=== PATIENT | female | born 1950 | race African-American/Black ===

== ENCOUNTER 2016-06-16 16:04 | Inpatient (IN) | payer MEDICARE, BC, MEDICAID ==
--- NOTE | 2016-06-16 16:28 | RAD ---
INDICATION: Code osullivan COMPARISON: CT brain January 21, 2016 TECHNIQUE: Noncontrast axial source images were acquired from the skull base to the vertex. FINDINGS: Ventricles/sulci: There is cortical atrophy with compensatory dilatation of the CSF spaces. Brain parenchyma: There is no acute focal parenchymal finding, evidence of intracranial mass, or intracranial mass effect. There are chronic periventricular and subcortical white matter changes consistent with chronic microvascular edema change. There is mild volume loss in right cerebellar hemisphere appearing unchanged and likely reflecting prior vascular insult. Intracranial hemorrhage:None. Extra-axial spaces: There are no abnormal extra axial fluid collections or evidence of extra-axial mass. Calvarium: There is no calvarial fracture or other calvarial abnormality. Scalp: There is no evidence of scalp or extracalvarial soft tissue abnormality. Paranasal sinuses/mastoid: The paranasal sinuses and mastoid air cells are clear. Other: None. IMPRESSION: CORTICAL ATROPHY WITH CHRONIC ISCHEMIC CHANGES. NO ACUTE FINDINGS. Findings called to ED at 1625 hours
[2016-06-16 16:58] LABS: Hematocrit 42 % (35-47); Mean Corpuscular HGB Conc 34 g/dl (31-36); Mean Corpuscular Hemoglobin 31 pg (27-31); Mean Corpuscular Volume 92 fL (80-97); Mean Platelet Volume 7 um3 (7.4-10.4); Red Cell Distribution Width 14 % (10.5-15); White Blood Count 6.1 10^3/ul (3.5-10.8)
[2016-06-16 17:15] LABS: Calcium 9.8 mg/dL (8.6-10.3); EGFR African American 170.5 (>60); EGFR Non-African American 132.6 (>60); Globulin 3.8 g/dL (2-4); HDL Cholesterol 71.2 mg/dL; Potassium 3.9 mmol/L (3.5-5.0); Total Bilirubin 0.4 mg/dL (0.2-1.0); Total Protein 7.8 g/dL (6.4-8.9)
[2016-06-16 17:21] LABS: Troponin I 0.07 ng/mL (<0.04)
--- NOTE | 2016-06-16 17:26 | RAD ---
INDICATION: CVA. COMPARISON: Comparison is made with a prior chest x-ray study from May 02, 2015. TECHNIQUE: A portable view of the chest was obtained. FINDINGS: Cardiac and mediastinal contours appear to be within normal limits. The lungs are underinflated and clear. No pleural effusion is seen. IMPRESSION: NO EVIDENCE FOR ACUTE DISEASE.
[2016-06-16 17:31] LABS: Phenytoin 13.4 mcg/mL (10-20)
[2016-06-16] MEDS ORDERED: Aspirin SUPP* 300 MG PR ONE (19:07)
[2016-06-16] MEDS ORDERED: hydrALAZINE IV* 20 MG/ML VIAL IV SLOW PU PRN (19:30)
[2016-06-16] MEDS: OXcarbazepine TAB(*) 300 MG PO SCH (19:42)
--- NOTE | 2016-06-16 19:49 | ED ---
Aníbal Harp Billy, scribed for Aryan Sewell MD on 06/16/16 at 1631 . Neurological HPI - HPI Summary HPI Summary: Patient is a 66 year-old female BIBA to [facility] from [facility] after she was found unresponsive at 1500. Patient is unable to provide history, level 5 caveat. Patient had a seizure at 1130 this morning. PMHx is significant for MS , seizure disorder, and previous CVA. Patient has chronic RUE and RLE weakness. - History of Current Complaint Chief Complaint: EDNeurologicalDeficit Stated Complaint: POSSIBLE CODE LOPEZ Time Seen by Provider: 06/16/16 16:06 Hx Obtained From: EMS, Medical Records Hx From Patient Unobtainable Due To: Other - level 5 caveat Onset/Duration: Sudden Onset, Started hours ago Timing: Sudden Onset Onset Severity: Moderate Current Severity: Moderate Number of Seizures: 1 Character: Responsiveness Aggravating: Unknown Alleviating: Unknown - Additional Pertinent History Primary Care Physician: LINDSEY - Allergy/Home Medications Allergies/Adverse Reactions: Allergies Allergy/AdvReac Type Severity Reaction Status Date / Time Chlorpromazine Allergy Unknown Unknown Verified 11/30/12 03:35 Reaction Details Glatiramer [From Copaxone] Allergy Unknown Unknown Verified 11/30/12 03:35 Reaction Details Mannitol [From Copaxone] Allergy Unknown Unknown Verified 11/30/12 03:35 Reaction Details Lactose Intolerance (GI) Allergy Diarrhea Verified 05/04/15 12:52 glucosteroids Allergy Unknown Unknown Uncoded 11/30/12 03:35 Reaction Details Home Medications: Home Medications Atorvastatin* [Lipitor*] 40 mg PO BEDTIME 06/16/16 [History Confirmed 06/16/16] Cholecalciferol [Vitamin D3 Super Strength] 2,000 unit PO QAM 06/16/16 [History Confirmed 06/16/16] Demeclocycline TAB* [Declomycin TAB*] 150 mg PO BID 06/16/16 [History Confirmed 06/16/16] Diazepam (ANTICONVULSANT)(*) [Diastat Acudial(*)] 10 mg NM ONCE PRN 06/16/16 [ History Confirmed 06/16/16] Emollient Ointment* [Hydrophor*] 1 applic TOPICAL BID 06/16/16 [History Confirmed 06/16/16] Labetalol TAB* [Trandate TAB*] 200 mg PO BID 06/16/16 [History Confirmed ] Levothyroxine TAB* [Synthroid TAB*] 50 mcg PO QPM 06/16/16 [History Confirmed ] Nitroglycerin TAB 0.4 MG* 0.4 mg SL Q5M PRN 06/16/16 [History Confirmed 06/16/16 ] OXcarbazepine TAB(*) [Trileptal TAB(*)] 600 mg PO BID 06/16/16 [History Confirmed 06/16/16] Oxcarbazepine [Trileptal] 150 mg PO BEDTIME 06/16/16 [History Confirmed 06/16/16 ] Phenytoin CAP(*) [Dilantin CAP(*)] 300 mg PO BEDTIME 06/16/16 [History Confirmed 06/16/16] PMH/Surg Hx/FS Hx/Imm Hx Cardiovascular History: Reports: Hx Hypercholesterolemia, Hx Hypertension Denies: Hx Pacemaker/ICD Respiratory History: Reports: Hx Asthma, Hx Pneumonia Denies: Hx Chronic Bronchitis, Hx Chronic Obstructive Pulmonary Disease (COPD ), Hx Cystic Fibrosis, Hx Lung Cancer, Hx Pleural Effusion, Hx Pulmonary Edema, Hx Pulmonary Embolism, Hx Seasonal Allergies, Hx Sleep Apnea, Other Respiratory Problems/Disorders Musculoskeletal History: Reports: Other Musculoskeletal History - Break in R foot, CONTRACTURES PER REPORT Denies: Hx Arthritis, Hx Back Problems, Hx Bursitis, Hx Congenital Bone Abnormalities, Hx Fibromyalgia, Hx Gout, Hx Orthopedic Injury, Hx Osteoporosis, Hx Scoliosis, Hx Tendonitis Sensory History: Reports: Hx Contacts or Glasses Denies: Hx Cataracts, Hx Eye Injury, Hx Eye Prosthesis, Hx Glaucoma, Hx Legally Blind, Hx Macular Degeneration, Hx Vision Problem, Hx Deafness, Hx Hearing Aid, Hx Hearing Problem, Other Sensory Impairments Opthamlomology History: Reports: Hx Contacts or Glasses Denies: Hx Cataracts, Hx Eye Injury, Hx Eye Prosthesis, Hx Glaucoma, Hx Legally Blind, Hx Macular Degeneration, Hx Vision Problem, Other Sensory Impairments Neurological History: Reports: Hx Dementia, Hx Nerve Disease, Hx Seizures, Other Neuro Impairments/Disorders - MS Denies: Hx Developmental Delay, Hx Headaches, Hx Migraine, Hx Spinal Cord Injury, Hx Transient Ischemic Attacks (TIA) Psychiatric History: Reports: Hx Depression, Hx Schizophrenia, Hx Bipolar Disorder Denies: Hx Anxiety, Hx Attention Deficit Hyperactivity Disorder, Hx Eating Disorder, Hx Panic Disorder, Hx Post Traumatic Stress Disorder, Hx Inpatient Treatment, Hx Community Mental Health Tx, Hx Suicide Attempt, Hx of Violent Episodes Against Others, Hx Substance Abuse, Other Psychiatric Issues/Disorders - Surgical History Surgery Procedure, Year, and Place: Fractured foot, [facility] EYE SURGERY A CHILD Hx Anesthesia Reactions: No Infectious Disease History: No Infectious Disease History: Denies: Hx Tuberculosis, Traveled Outside the [place] in Last 30 Days - Family History Known Family History: Positive: Unknown - LEVEL 5 CAVEAT: FHx LIMITED DUE TO PT CONDITION, UNRESPONSIVE. - Social History Alcohol Use: Unable to obtain - LEVEL 5 CAVEAT: SHx LIMITED DUE TO PT CONDITION , UNRESPONSIVE. Substance Use Type: Reports: None Smoking Status (MU): Unknown if Ever Smoked Type: Cigarettes Have You Smoked in the Last Year: No Review of Systems Negative: Fever Neurological: Other - unresponsive, seizure Positive: Weakness All Other Systems Reviewed And Are Negative: No - Comments Additional Review of Systems Comments: Full ROS not obtained. Level 5 caveat. Physical Exam - Summary Physical Exam Summary: The patient is in no acute pain. The skin is warm and dry and skin color reflects adequate perfusion. HEENT: The head is normocephalic and atraumatic. The pupils are constricted. EOMI not assessed. The conjunctivae are clear and without drainage. Nares are patent and without drainage. Mouth reveals dry mucous membranes and the throat is without erythema and exudate. The external ears are intact. The ear canals are patent and without drainage. The tympanic membranes are intact. Neck is supple with full range of motion and non-tender. There are no carotid bruits. There is no neck vein distension. Respiratory: Chest is non-tender. Lungs are clear to auscultation and breath sounds are symmetrical and equal. Cardiovascular: Heart is regular rate and rhythm. There is no murmur or rub auscultated. Abdomen: The abdomen is soft and non-tender. There are normal bowel sounds heard in all four quadrants and there is no organomegaly palpated. Musculoskeletal: There is no back pain noted. Extremities are non-tender with full range of motion. There is good capillary refill. There is no peripheral edema or calf tenderness elicited. Neurological: Patient is minimally responsive to voice. Babinksi reflex on the left. Flaccid is right arm. Some effort in the left arm against gravity. Right facial droop. Unable to assess motor strength or pronator drift. Psychiatric: Minimally responsive to voice. Triage Information Reviewed: Yes Vital Signs On Initial Exam: Initial Vitals Temp Pulse Resp BP Pulse Ox 98.9 F 96 19 177/103 99 06/16/16 16:22 17 16:22 06/16/16 16:22 17 16:22 06/16/16 16:22 Vital Signs Reviewed: Yes Completion Of Physical Exam Limited Due To: Level 5 Diagnostics - Vital Signs Vital Signs Temp Pulse Resp BP Pulse Ox 06/16/16 16:22 98.9 F 96 19 177/103 99 - Laboratory Lab Results: Lab Results 06/16/16 06/16/16 06/16/16 Range/Units 16:45 16:45 16:45 WBC 6.1 (3.5-10.8) 10^3/ul RBC 4.50 (4.0-5.4) 10^6/ul Hgb 14.0 (12.0-16.0) g/dl Hct 42 (35-47) % MCV 92 (80-97) fL MCH 31 (27-31) pg MCHC 34 (31-36) g/dl RDW 14 (10.5-15) % Plt Count 289 (150-450) 10^3/ul MPV 7 L (7.4-10.4) um3 Neut % (Auto) 63.4 (38-83) % Lymph % (Auto) 23.5 L (25-47) % Dawson % (Auto) 11.4 H (1-9) % Eos % (Auto) 0.5 (0-6) % Baso % (Auto) 1.2 (0-2) % Absolute Neuts (auto) 3.9 (1.5-7.7) 10^3/ul Absolute Lymphs (auto) 1.4 (1.0-4.8) 10^3/ul Absolute Monos (auto) 0.7 (0-0.8) 10^3/ul Absolute Eos (auto) 0 (0-0.6) 10^3/ul Absolute Basos (auto) 0.1 (0-0.2) 10^3/ul Absolute Nucleated RBC 0 10^3/ul Nucleated RBC % 0.1 INR (Anticoag Therapy) 1.02 (0.89-1.11) APTT 27.4 (26.0-36.3) seconds Sodium 131 L (133-145) mmol/L Potassium 3.9 (3.5-5.0) mmol/L Chloride 98 L (101-111) mmol/L Carbon Dioxide 24 (22-32) mmol/L Anion Gap 9 (2-11) mmol/L BUN 8 (6-24) mg/dL Creatinine 0.47 L (0.51-0.95) mg/dL Est GFR ( Amer) 170.5 (>60) Est GFR (Non-Af Amer) 132.6 (>60) BUN/Creatinine Ratio 17.0 (8-20) Glucose 115 H (70-100) mg/dL Lactic Acid (0.5-2.0) mmol/L Calcium 9.8 (8.6-10.3) mg/dL Total Bilirubin 0.40 (0.2-1.0) mg/dL AST 16 (13-39) U/L ALT 15 (7-52) U/L Alkaline Phosphatase 127 H (34-104) U/L Troponin I 0.07 H* (<0.04) ng/mL Total Protein 7.8 (6.4-8.9) g/dL Albumin 4.0 (3.2-5.2) g/dL Globulin 3.8 (2-4) g/dL Albumin/Globulin Ratio 1.1 (1-3) Triglycerides 86 mg/dL Cholesterol 292 mg/dL LDL Cholesterol 204 mg/dL HDL Cholesterol 71.2 mg/dL Phenytoin 13.4 (10-20) mcg/mL Blood Type Antibody Screen 06/16/16 06/16/16 Range/Units 16:45 16:45 WBC (3.5-10.8) 10^3/ul RBC (4.0-5.4) 10^6/ul Hgb (12.0-16.0) g/dl Hct (35-47) % MCV (80-97) fL MCH (27-31) pg MCHC (31-36) g/dl RDW (10.5-15) % Plt Count (150-450) 10^3/ul MPV (7.4-10.4) um3 Neut % (Auto) (38-83) % Lymph % (Auto) (25-47) % Dawson % (Auto) (1-9) % Eos % (Auto) (0-6) % Baso % (Auto) (0-2) % Absolute Neuts (auto) (1.5-7.7) 10^3/ul Absolute Lymphs (auto) (1.0-4.8) 10^3/ul Absolute Monos (auto) (0-0.8) 10^3/ul Absolute Eos (auto) (0-0.6) 10^3/ul Absolute Basos (auto) (0-0.2) 10^3/ul Absolute Nucleated RBC 10^3/ul Nucleated RBC % INR (Anticoag Therapy) (0.89-1.11) APTT (26.0-36.3) seconds Sodium (133-145) mmol/L Potassium (3.5-5.0) mmol/L Chloride (101-111) mmol/L Carbon Dioxide (22-32) mmol/L Anion Gap (2-11) mmol/L BUN (6-24) mg/dL Creatinine (0.51-0.95) mg/dL Est GFR ( Amer) (>60) Est GFR (Non-Af Amer) (>60) BUN/Creatinine Ratio (8-20) Glucose (70-100) mg/dL Lactic Acid 1.3 (0.5-2.0) mmol/L Calcium (8.6-10.3) mg/dL Total Bilirubin (0.2-1.0) mg/dL AST (13-39) U/L ALT (7-52) U/L Alkaline Phosphatase (34-104) U/L Troponin I (<0.04) ng/mL Total Protein (6.4-8.9) g/dL Albumin (3.2-5.2) g/dL Globulin (2-4) g/dL Albumin/Globulin Ratio (1-3) Triglycerides mg/dL Cholesterol mg/dL LDL Cholesterol mg/dL HDL Cholesterol mg/dL Phenytoin (10-20) mcg/mL Blood Type B Positive Antibody Screen Negative Result Diagrams: 06/16/16 16:45 06/16/16 16:45 Lab Statement: Any lab studies that have been ordered have been reviewed, and results considered in the medical decision making process. - Radiology CXR Xray Interpretation: No Acute Changes Radiology Interpretation Completed By: Radiologist - CT brain CT Interpretation: No Acute Changes CT Interpretation Completed By: Radiologist - EKG 1621 EKG Interpretation: sinus rhythm 99 bpm, poor R-wave progression, normal axis, no ST elevation Course/Dx - Course Assessment/Plan: 66 y/o female coming to [facility] for after she was found unresponsive today. CXR and CT brain show no acute pathology. EKG shows sinus rhythm 99 bpm, poor R-wave progression, normal axis, no ST elevation. Case discussed with Dr. Wong who accepted the patient for admission. - Differential Dx Differential Diagnoses Neuro: Positive: Cerebrovascular Accident, Postical, Seizure Disorder, Other - mi, ms - Diagnoses Provider Diagnoses: Altered mental status - Physician Notifications Discussed Care of Patient With: Dr. Booth (radiology) @ 1624: CT brain findings reviewed. Dr. Castaneda (neurology) @ 1646: made aware of patient presentation. Dr. Wong (hospitalist) @ 1800: accepts admission. Discharge - Discharge Plan Condition: Stable Disposition: ADMITTED TO [facility] Referrals: Arpit Wong MD [Primary Care Provider] - The documentation as recorded by the Aníbal white Billy accurately reflects the service I personally performed and the decisions made by Donato bingham Drew, MD.
[2016-06-16] MEDS ORDERED: Losartan TAB* 25 MG PO SCH (21:00)
[2016-06-16] MEDS ORDERED: OXcarbazepine TAB(*) 300 MG PO SCH (21:00)
[2016-06-16] MEDS ORDERED: OXCARBAZEPINE 150 MG PO SCH (21:00)
[2016-06-16] MEDS ORDERED: Labetalol TAB* 200 MG PO SCH (21:00)
[2016-06-16] MEDS ORDERED: Phenytoin CAP(*) 100 MG CAP.ER PO SCH (21:00)
--- NOTE | 2016-06-16 21:00 | RAD ---
INDICATION: CVA. COMPARISON: Comparison is made with a prior CT of the brain from June 16, 2016 and a prior MRI of the brain from January 25, 2016. TECHNIQUE: Sagittal T1, axial T1, T2, susceptibility, FLAIR and diffusion weighted images were obtained. FINDINGS: The ventricles, cisterns and sulci are prominent consistent with diffuse atrophy. There are confluent areas of increased signal intensity and T2-weighted images present in the subcortical and periventricular white matter most consistent with moderate to severe chronic small vessel ischemic changes. No areas of restricted diffusion are present. There is no evidence for infarct or hemorrhage. The visualized portion of the paranasal sinuses and mastoid air cells appear clear. IMPRESSION: 1. NO EVIDENCE FOR ACUTE INTRACRANIAL ABNORMALITY. 2. ATROPHY AND FINDINGS CONSISTENT WITH MODERATE TO SEVERE CHRONIC SMALL VESSEL ISCHEMIC CHANGES.
[2016-06-16] MEDS: Baclofen TAB* 20 MG PO SCH (22:41)
[2016-06-16] MEDS: Demeclocycline TAB* 150 MG PO SCH (22:44)
[2016-06-16] MEDS: Labetalol TAB* 200 MG PO SCH (22:48)
[2016-06-16] MEDS: Heparin VIAL(*) 5000 UNITS/ML VIAL (FIVE THOUSAND) SUBCUT SCH (22:50)
--- NOTE | 2016-06-17 00:04 | HP ---
HOSPITAL MEDICINE HISTORY AND PHYSICAL: DATE OF ADMISSION: 06/16/16 ATTENDING PHYSICIAN: Dr. Arpit Wong* (dictation provided by Diane Gatica NP) CHIEF COMPLAINT: Unresponsiveness. HISTORY OF PRESENT ILLNESS: Ms. Pepe is a 66-year-old female with a past medical history of multiple sclerosis, seizure disorder, conversion disorder, and bipolar disorder, who presents today to the hospital with concern for unresponsiveness. Per the report, Ms. Pepe had a witnessed seizure at approximately 11:30 today. The patient was given Valium and thereafter returned to her baseline mental status. She is normally able to make her needs known and speaks relatively clearly though she does have a small amount of dysarthria. She also has significant weakness and contractures and is really only able to move her left upper extremity. The patient again was back to her baseline, but then at approximately 3 o'clock, she was noted to be unresponsive and therefore she was brought to the emergency room for evaluation. There is no report of any recent illness with Ms. Pepe, although I do not have much in the way of documentation from [facility] and I am unable to speak to them on the phone. Per their report here, there was concern the patient had moist rales on lung auscultation and a cough with thin sputum in addition to her episodes of unresponsiveness. In the emergency room, Ms. Pepe is responsive to voice, she will open her eyes and look at you. She moves her mouth in an attempt to speak and for me has the word "yeah." She has lab values, which are essentially unremarkable except for troponin, which is 0.07. Her Dilantin level is 13.4. CT brain is normal. Chest x- ray is normal. EKG showed no evidence of ischemia. PAST MEDICAL HISTORY: 1. Multiple sclerosis. 2. Hypothyroidism. 3. Mild intermittent asthma. 4. Contractures. 5. Hardness of hearing. 6. Constipation. 7. Essential hypertension. 8. Hyperlipidemia. 9. Conversion disorder with seizures or convulsions. 10. Bipolar disorder. 11. Vitamin D deficiency. MEDICATIONS: 1. Tylenol 500 mg p.o. q.8 hours p.r.n. 2. Atorvastatin 40 mg p.o. at bedtime. 3. QVAR 2 puffs inhaled b.i.d. 4. Cholecalciferol 2000 units p.o. q.a.m. 5. Diazepam 10 mg per rectum p.r.n. 6. Docusate 200 mg p.o. at bedtime. 7. Emollient ointment 1 application topically b.i.d. 8. Labetalol 200 mg p.o. b.i.d. 9. Losartan 100 mg p.o. at bedtime. 10. Nitroglycerin 0.4 mg sublingually p.r.n. 11. Seroquel XR 200 mg p.o. at bedtime. 12. Amlodipine 10 mg p.o. q.a.m. 13. Aspirin 81 mg p.o. q.a.m. 14. Baclofen 20 mg p.o. t.i.d. 15. Demeclocycline 150 mg p.o. b.i.d. 16. Levothyroxine 50 mcg p.o. q.p.m. 17. Oxcarbazepine 600 mg in the morning and 750 mg at bedtime. 18. Phenytoin 300 mg p.o. at bedtime. ALLERGIES: To CHLORPROMAZINE, GLATIRAMER, MANNITOL, LACTOSE, STEROIDS. FAMILY HISTORY: Unobtainable. SOCIAL HISTORY: Unobtainable. She is a resident of [facility]. REVIEW OF SYSTEMS: Unobtainable. PHYSICAL EXAMINATION GENERAL: Ms. Pepe is lying in bed. She does not appear to be in any acute distress. VITAL SIGNS: Temperature 98.9, pulse rate 96, respiratory rate 19, O2 saturation 99% on 2 L nasal cannula, blood pressure 177/103. LUNGS: Clear to auscultation bilaterally with no accessory muscle use and good aeration. HEART: S1, S2. No murmur, rub, or gallop and regular. ABDOMEN: Soft, nontender, with bowel sounds positive x4. EXTREMITIES: No cyanosis or edema. NEURO: She awakens her eyes on voice. She moves her mouth as if she is going to speak, but has only been able to produce the word "yeah." She is noted to be in contractures, but does have some shaking type movement in the left arm. Her left lower extremity is inwardly rotated. I have not seen her move the lower extremities. Her face is asymmetrical. She has nasolabial fold flattening on the right. Her pupils are equal and reactive. SKIN: Intact. DIAGNOSTIC STUDIES/LAB DATA: WBC 6.1, hemoglobin 14.0, hematocrit 42, and platelet count 289. INR 1.02. Sodium 131, potassium 3.9, chloride 98, serum bicarbonate 24, BUN 8, creatinine 0.47, and glucose 115. Troponin 0.07. Phenytoin level is 13.4. CT brain is read as follows: Cortical atrophy with chronic ischemic changes, no acute findings. Chest x-ray is read as follows: No evidence of acute disease. EKG: Shows no evidence of ischemia and sinus rhythm. ASSESSMENT AND PLAN: Ms. Pepe is a 66-year-old female with past medical history of multiple sclerosis, seizure disorder, significant contractures with reported movement only to the left upper extremity as well as conversion disorder and bipolar disorder, who presents today to the hospital with concern for altered mental status. Per the report, the patient had a witnessed seizure followed by normal mentation and then was shown to be unresponsive. Plans are for inpatient admission where the expected length of stay would be greater than 2 days for the followin. Altered mental status. Clearly, the patient could have had a seizure and it has been reported to have been witnessed to have a seizure at the halfway. I have spoken with Dr. Castaneda over the phone and he has recommended that we increase the Trileptal from 600 in the morning to 750 mg in the morning and continue the 750 mg at night. We will continue the Dilantin at the current dose. Her Dilantin level is appropriate. The patient is also at high risk for stroke. Plan for an MRI of the brain and consultation with Dr. Castaneda. The patient will be monitored on telemetry. She is receiving aspirin here in the emergency department and will receive that per rectum as needed. I do not see any evidence of infection, but the patient's urinalysis is pending. 2. History of hypertension. The patient's blood pressure is elevated, but it has only been a short period of time here in the ED. I plan to continue her home medications if she is able to swallow and passes a bedside swallow evaluation. If not, we will switch over to intravenous agents. 3. History of hypothyroidism. Continue levothyroxine if the patient is able to tolerate oral intake. 4. Elevated troponin. The patient's troponin is elevated to 0.07 today. EKG shows no evidence of ischemia. Troponins will be trended and she will be monitored on telemetry. 5. DVT prophylaxis with heparin subcu. 6. Disposition to telemetry floor. 7. Code status is full code. TIME SPENT: Approximately 60 minutes was spent on the admission of this patient ; more than half the time was spent with the patient. DIANE GATICA NP CC: Care providers at [facility]* [id number]/CPS #: [id number] ESTHER
[2016-06-17 03:43] LABS: Urine Bacteria 1+ (Absent); Urine Bilirubin Negative (Negative); Urine Glucose Negative (Negative); Urine Nitrite Negative (Negative)
[2016-06-17] MEDS ORDERED: Levothyroxine TAB* 50 MCG TAB PO SCH (06:00)
[2016-06-17] MEDS: Heparin VIAL(*) 5000 UNITS/ML VIAL (FIVE THOUSAND) SUBCUT SCH ×3 (07:49→23:09)
[2016-06-17] MEDS ORDERED: Aspirin Low Dose CHEW TAB* 81 MG PO SCH (09:00)
[2016-06-17] MEDS ORDERED: Sulfamethox/Trimethoprim DS 800/160* TAB PO SCH (09:00)
[2016-06-17 09:16] LABS: Hematocrit 38 % (35-47); Mean Corpuscular HGB Conc 34 g/dl (31-36); Mean Corpuscular Hemoglobin 31 pg (27-31); Mean Corpuscular Volume 92 fL (80-97); Mean Platelet Volume 7 um3 (7.4-10.4); Red Blood Count 4.15 10^6/ul (4.0-5.4); Red Cell Distribution Width 13 % (10.5-15); White Blood Count 6.2 10^3/ul (3.5-10.8)
[2016-06-17 09:31] LABS: BUN/Creatinine Ratio 21.7 (8-20); Calcium 9.4 mg/dL (8.6-10.3); EGFR African American 174.8 (>60); EGFR Non-African American 135.9 (>60); Potassium 3.5 mmol/L (3.5-5.0)
[2016-06-17] MEDS: OXcarbazepine TAB(*) 300 MG PO SCH (11:47)
[2016-06-17] MEDS: Demeclocycline TAB* 150 MG PO SCH (11:47)
[2016-06-17] MEDS: Baclofen TAB* 20 MG PO SCH ×2 (11:47→15:24)
[2016-06-17] MEDS: Labetalol TAB* 200 MG PO SCH (11:47)
[2016-06-17] MEDS: Aspirin SUPP* 300 MG PR SCH (12:10)
--- NOTE | 2016-06-17 15:53 | PN ---
Subjective Date of Service: 06/17/16 Interval History: Patient seen and examined at bedside. Pt is mostly non-verbal today, but is able to shake her head yes and no at this time. Pt denies pain or shortness of breath with a head shake of no. Pt was able to make medications earlier today with [facility] staff. Discussed code status with sister Yolanda Clemons and she would still like Raine to be a full code at this time. Also discussed placing an NG tube temporarily while Raine is unable to swallow and she agrees. Tele: Sinus rhythm - sinus arrhythmia, rate 60-80's. Family History: Unchanged from Admission Social History: Unchanged from Admission Past Medical History: Unchanged from Admission Objective Active Medications: Aspirin (Aspirin Supp*) 300 mg NV DAILY BOB Baclofen (Lioresal Tab*) 20 mg PO TID BOB Demeclocycline HCl (Declomycin Tab*) 150 mg PO BID BOB Heparin Sodium (Porcine) (Heparin Vial(*)) 5,000 units SUBCUT Q8HR BOB Hydralazine HCl (Apresoline Iv*) 5 mg IV SLOW PU Q6H PRN Reason: SBP>185 Labetalol HCl (Trandate Tab*) 200 mg PO BID BOB Levothyroxine Sodium (Synthroid Tab*) 50 mcg PO DAILY@0600 BOB Losartan Potassium (Cozaar Tab*) 100 mg PO BEDTIME BOB Oxcarbazepine (Trileptal Tab(*)) 750 mg PO BID BOB Phenytoin Sodium (Dilantin Cap(*)) 300 mg PO BEDTIME BOB Trimethoprim/Sulfamethoxazole (Bactrim Ds 800/160 Tab*) 1 tab PO BID [facility] Vital Signs 06/16/16 06/16/16 06/16/16 20:22 21:55 23:04 Temperature 98.4 F 99.7 F Pulse Rate 90 87 91 Respiratory 19 20 20 Rate Blood Pressure 166/92 157/90 157/90 (mmHg) O2 Sat by Pulse 99 100 100 Oximetry 06/17/16 00:27 Temperature Pulse Rate Respiratory 20 Rate Blood Pressure (mmHg) O2 Sat by Pulse Oximetry Oxygen Devices in Use Now: Nasal Cannula - 2.5L Appearance: NAD, laying in bed Eyes: No Scleral Icterus, PERRLA Ears/Nose/Mouth/Throat: - - Flattening of the nasal labial fold on right Respiratory: Symmetrical Chest Expansion and Respiratory Effort, Clear to Auscultation Cardiovascular: NL Sounds; No Murmurs; No JVD, RRR Abdominal: NL Sounds; No Tenderness; No Distention Extremities: No Edema, - - Noted contractures in extremities Neurological: - - Alert, opens her eyes. She tries to speak, but is unable. Lines/Tubes/Other Access: Clean, Dry and Intact Peripheral IV - site benign Result Diagrams: 06/17/16 08:55 06/17/16 08:47 Additional Lab and Data: Microbiology and Other Data: Microbiology 06/17/16 04:35 Nasal Screen MRSA (PCR)(WILLIE) - Final Nasal Mrsa Negative Assess/Plan/Problems-Billing Assessment: Ms. Pepe is a 66 yo female with PMH significant for MS, seizure disorder and significant contractures, bipolar disorder and conversion disorder who presented to the hospital with concern for altered mental status. - Patient Problems (1) Altered mental status Code(s): R41.82 - ALTERED MENTAL STATUS, UNSPECIFIED SNOMED Code(s): 395461643 Comment: - Continues to be unable to speak - Pt unable to follow directions for swallow eval this afternoon (wouldn't close her mouth) and speech therapy recommends NPO - Unclear etiology, suspect this could represent a seizure. Pt also has a UTI and this could be playing a role in the AMS (2) UTI (urinary tract infection) Comment: - Culture pending - History of ESBL E Coli in past - Will switch Bactrim to Zosyn now that she is NPO (3) Seizure disorder Code(s): G40.909 - EPILEPSY, UNSP, NOT INTRACTABLE, WITHOUT STATUS EPILEPTICUS SNOMED Code(s): 905550354 Comment: - Seizures, likely related to UTI, which may have lowered her threshold. - Patient is able to respond yes and no (with head shake) - MRI of brain with no acute findings. - Will change dilantin to IV and place NG tube for oxcarbazepine (dose increased by Dr. Castaneda) until able to take PO. - Continue seizure precautions. (4) Elevated troponin Code(s): R74.8 - ABNORMAL LEVELS OF OTHER SERUM ENZYMES SNOMED Code(s): 378783349 Comment: - Troponin 0.07 and 0.05 - Suspect demand ischemia (5) HTN (hypertension) Code(s): I10 - ESSENTIAL (PRIMARY) HYPERTENSION SNOMED Code(s): 52142639 Comment: - SBP 130-160's - Resume losartan and amlodipine when taking PO - Will change Labetalol to IV (6) Multiple sclerosis Code(s): G35 - MULTIPLE SCLEROSIS SNOMED Code(s): 66110554 Comment: - Severe with contractures and dementia. - Resume Aricept and Baclofen when taking PO. (7) Hyponatremia Code(s): E87.1 - HYPO-OSMOLALITY AND HYPONATREMIA SNOMED Code(s): 56142494 Comment: - Chronic - Resume democlocyline BID when taking PO - Sodium 131 today, will trend NA+ (8) Hypothyroidism Code(s): E03.9 - HYPOTHYROIDISM, UNSPECIFIED SNOMED Code(s): 93818439 Comment: - Hold levothyroxine while NPO, if she is NPO for more than a few days will start IV levothyroxine. (9) DVT prophylaxis Code(s): FSY1586 - SNOMED Code(s): 813953187 Comment: - Continue SQ heparin. (10) Full code status Code(s): Z78.9 - OTHER SPECIFIED HEALTH STATUS SNOMED Code(s): 445670640 Status and Disposition: Inpatient. Discharge back to [facility] when medically stable.
[2016-06-17] MEDS: NS 0.9% 1000 ML* 1,000 ML IV SCH (17:49)
[2016-06-17] MEDS ORDERED: Piperac/Tazob 3.375 gm in NS* 3.375 GM/100 ML BAG IVPB ONE (18:30)
[2016-06-17] MEDS ORDERED: Phenytoin IV(*) 100 MG in NS 0.9% 50 ML* 100 ML IVPB SCH (20:00)
[2016-06-17] MEDS ORDERED: Labetalol IV* 5 MG/ML 20 ML VIAL IV PUSH SCH (20:00)
--- NOTE | 2016-06-17 20:37 | CONS ---
CONSULTATION REPORT: DATE OF CONSULT: DATE OF DICTATION: 06/17/16 PATIENT OF: Dr. Wong and Dr. Olmedo. HISTORY OF PRESENT ILLNESS: This is 66-year-old woman I am asked to evaluate for episodes she had yesterday. 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 She also has a seizure disorder, conversion disorder, and bipolar disorder. She had apparently a witnessed seizure at 11:30 yesterday and was given Valium and returned back to her baseline. However, at 3, she was noted to be unresponsive and brought to the emergency room. At that time, they thought she may have had increased focal deficit, but this is hard to assess given her underlying deficits. PAST MEDICAL HISTORY: Significant for multiple sclerosis, hypothyroidism, asthma, contractures, constipation, hypertension, hyperlipidemia, conversion disorder with seizures, bipolar disorder, vitamin D deficiency. MEDICATIONS: Include: 1. Atorvastatin 40 mg bedtime. 2. QVAR 2 puffs b.i.d. 3. Calciferol 2000 units q.a.m. 4. Diazepam 10 mg p.r.n. 5. Docusate 200 at bedtime. 6. Labetalol 200 b.i.d. 7. Nitroglycerin 0.4 p.r.n. 8. Seroquel 200 mg p.o. XR. 9. Aspirin 81 mg q.a.m. 10. Amlodipine 10 mg q.a.m. 11. Baclofen 20 mg t.i.d. 13. Levothyroxine 50 mcg q.p.m. 14. Trileptal 600 in the morning and 750 at night. 15. Dilantin 300 mg at bedtime. ALLERGIES: 1. CHLORPROMAZINE. 2. GLATIRAMER. 3. MANNITOL. 4. LACTOSE. FAMILY HISTORY: Unobtainable through the patient. SOCIAL HISTORY: Unobtainable through the patient. REVIEW OF SYSTEMS: Unobtainable through the patient. PHYSICAL EXAM: Temperature 99.7, pulse 91, respiration 20, blood pressure 157/ 90. Her eyes were open and she seemed to respond to me but did not speak to me. She had bilateral exotropia. She had twitch in her left face. She had diffuse spastic quadriparesis, but could move her left arm. She had diffuse contractures. She had nasolabial flattening on the right and her pupils were equal, round, and react to light. Toes were upgoing bilaterally. Chest: Clear. Cardiovascular: Regular rate and rhythm. Abdomen: Soft with positive bowel sounds. There is no edema or cyanosis in her extremities. DIAGNOSTIC STUDIES/LAB DATA: I reviewed her MRI scan which did not show any acute stroke and showed diffuse white matter disease, which was read as moderate -to- severe chronic small vessel ischemic change, but could clearly be from her MS for which Dr. Olmedo sees her for. CBC showed normal white count, hematocrit, and platelets. Normal INR and PTT. Sodium today was 133. Normal BMP other than creatinine of 0.46, glucose 101. Her LDL was 204. Normal liver function tests. Her Dilantin level was 13.4. Trileptal level has been sent. Her EEG showed diffuse slowing but no seizure activity, including during movements of her extremities and facial twitching and tics. IMPRESSION: It is hard to know what happened, but possibly this is a seizure. I take the liberty of increasing her Trileptal and she is going to continue her aspirin and her LDL was elevated, it would be appropriate to treat her with a statin. I discussed the case with May Junior [place]. [id number]/[facility] #: [id number] ESTHER
[2016-06-17] MEDS: OXcarbazepine TAB(*) 300 MG NG TUBE SCH (21:04)
[2016-06-18] MEDS: Piperac/Tazob 3.375 gm in NS* 3.375 GM/100 ML BAG IVPB SCH ×4 (00:17→22:42)
--- NOTE | 2016-06-18 03:54 | EEG ---
ELECTROENCEPHALOGRAPHY: DATE OF STUDY: DATE OF DICTATION: 06/17/16 - ROOM #436 PATIENT OF: Diane Gatica NP CLINICAL PROBLEM: A 66-year-old woman with a history of MS and seizure disorder as well as convulsion disorder. She presented yesterday with a seizure and she had returned to her baseline, but then became unresponsive again. MEDICATIONS: Include Baclofen. REPORT: With the patient awake, background cerebral activity consist of admixed theta activity that reaches 6 to 7 Hz rhythm with some slower superimposed diffuse delta activity. During the tracing, there were right side of the face tics with shaking of left hand at other points. Sometimes shoulder and head jerking. There was no change in clinical background during any of these movements. The patient never fell asleep. No activation procedures were done. CLINICAL IMPRESSION: This awake EEG is abnormal because of diffuse slowing of background consistent with a generalized encephalopathy, but nonspecific as to etiology. There was number of tics or shaking in both the head and extremities during this test, but no electrographic changes were noted during these movements. No epileptiform potentials were noted at any point during this tracing. CC: Emanuel Olmedo MD* [id number]/[facility] #: [id number] MTDD
[2016-06-18] MEDS: Labetalol IV* 5 MG/ML 20 ML VIAL IV PUSH SCH ×3 (05:00→16:19)
[2016-06-18] MEDS: Heparin VIAL(*) 5000 UNITS/ML VIAL (FIVE THOUSAND) SUBCUT SCH ×3 (05:01→22:43)
[2016-06-18] MEDS ORDERED: Phenytoin IV(*) 100 MG in NS 0.9% 50 ML* 100 ML IVPB SCH (07:00)
[2016-06-18] MEDS ORDERED: Phenytoin IV(*) 50 MG/ML 2 ML VIAL (100 MG) ONE (08:13)
[2016-06-18] MEDS: Aspirin SUPP* 300 MG PR SCH (08:24)
[2016-06-18] MEDS: OXcarbazepine TAB(*) 300 MG NG TUBE SCH ×2 (08:29→21:07)
[2016-06-18] MEDS: Phenytoin IV(*) 100 MG in NS 0.9% 50 ML* 100 ML IVPB SCH ×2 (08:43→15:41)
[2016-06-18] MEDS: NS 0.9% 1000 ML* 1,000 ML IV SCH (09:28)
--- NOTE | 2016-06-18 09:58 | PN ---
Subjective Date of Service: 06/18/16 Interval History: Patient seen and examined at bedside. Ms. Pepe is sitting up in bed. She shakes her head "no" when asked if she has any pain or discomfort. She nods her head "yes" when asked if she is feeling okay. She does not endorse chest pain or trouble breathing. Per nursing notes, the patient's family last evening declined an NGT for the patient, stating they would only want it as a last resort. The patient reportedly was able to follow directions and swallow medicine via applesauce last evening and again this morning. Aspiration precautions maintained. Patient observed coughing this AM but this occurred over an hour after she received her medications. She appeared to be choking on saliva. The patient was able to say "okay" to myself and the nurse following the coughing episode. Telemetry: Sinus rhythm with PVCs 60s-70s Family History: Unchanged from Admission Social History: Unchanged from Admission Past Medical History: Unchanged from Admission Objective Active Medications: Aspirin (Aspirin Supp*) 300 mg MS DAILY [facility] Last Admin: 06/18/16 08:24 Dose: 300 mg Heparin Sodium (Porcine) (Heparin Vial(*)) 5,000 units SUBCUT Q8HR [facility] Last Admin: 06/18/16 05:01 Dose: 5,000 units Hydralazine HCl (Apresoline Iv*) 5 mg IV SLOW PU Q6H PRN PRN Reason: SBP>185 Sodium Chloride (Ns 0.9% 1000 Ml*) 1,000 mls @ 125 mls/hr IV PER RATE [facility] Last Admin: 06/18/16 09:28 Dose: 125 mls/hr Piperacillin Sod/Tazobactam Sod (Zosyn 3.375 Gm In Ns Premix*) 3.375 gm in 100 mls @ 25 mls/hr IVPB Q8H [facility] Last Admin: 06/18/16 06:09 Dose: 25 mls/hr Phenytoin Sodium 100 mg/ (Sodium Chloride) 102 mls @ 408 mls/hr IVPB 0000,0800, 1600 [facility] Last Admin: 06/18/16 08:43 Dose: 408 mls/hr Labetalol HCl (Trandate Iv*) 20 mg IV PUSH 0500,1100,1700,2300 [facility] Last Admin: 06/18/16 05:00 Dose: 20 mg Oxcarbazepine (Trileptal Tab(*)) 750 mg NG TUBE BID BOB Last Admin: 06/18/16 08:29 Dose: 750 mg Vital Signs 06/17/16 06/17/16 06/17/16 11:00 11:27 15:46 Temperature 99.0 F 99.5 F Pulse Rate 87 91 Respiratory 18 20 18 Rate Blood Pressure 157/85 138/85 (mmHg) O2 Sat by Pulse 100 99 Oximetry 06/17/16 06/17/16 06/17/16 19:55 20:00 23:50 Temperature 97.8 F 98.9 F Pulse Rate 71 65 Respiratory 18 20 16 Rate Blood Pressure 176/85 118/62 (mmHg) O2 Sat by Pulse 100 100 Oximetry 06/18/16 06/18/16 03:57 07:48 Temperature 98.3 F 98.8 F Pulse Rate 63 68 Respiratory 16 20 Rate Blood Pressure 117/62 143/76 (mmHg) O2 Sat by Pulse 100 100 Oximetry Oxygen Devices in Use Now: Nasal Cannula - 2.5L Appearance: Female patient, sitting up in bed, in NAD Eyes: No Scleral Icterus, PERRLA Ears/Nose/Mouth/Throat: - - flattening of nasolabial fold on right Respiratory: Symmetrical Chest Expansion and Respiratory Effort, Clear to Auscultation Cardiovascular: NL Sounds; No Murmurs; No JVD, RRR Abdominal: NL Sounds; No Tenderness; No Distention Extremities: No Edema, - - contractures in extremities Neurological: - - Alert, opens her eyes. Shakes head yes and no, can form a few basic words Lines/Tubes/Other Access: Clean, Dry and Intact Peripheral IV Nutrition: Taking PO's Result Diagrams: 06/17/16 08:55 06/17/16 08:47 Additional Lab and Data: Microbiology and Other Data: Microbiology 06/17/16 04:35 Nasal Screen MRSA (PCR)(WILLIE) - Final Nasal Mrsa Negative Assess/Plan/Problems-Billing Assessment: Ms. Pepe is a 66 yo female with PMH significant for MS, seizure disorder and significant contractures, bipolar disorder and conversion disorder who presented to the hospital with concern for altered mental status. - Patient Problems (1) Altered mental status Code(s): R41.82 - ALTERED MENTAL STATUS, UNSPECIFIED Comment: Patient forming a few words and is able to shake head yes/no; will discuss with family to determine baseline. Speech therapy recommends NPO; however, family later refused NGT, wanting patient to try PO again. Patient better following directions and managing PO intake at this time. Reattempt bedside dysphagia screen. Unclear etiology, suspect this could represent a seizure. Pt also has a UTI and this could be playing a role in the AMS. (2) UTI (urinary tract infection) Comment: Culture pending. History of ESBL E Coli in past Continue Zosyn. (3) Seizure disorder Code(s): G40.909 - EPILEPSY, UNSP, NOT INTRACTABLE, WITHOUT STATUS EPILEPTICUS Comment: Seizures, likely related to UTI, which may have lowered her threshold. Patient is able to respond yes and no (with head shake) MRI of brain with no acute findings. Continue Dilantin IV and oxcarbazepine PO/NG (dose increased by Dr. Castaneda). Continue seizure precautions. (4) Elevated troponin Code(s): R74.8 - ABNORMAL LEVELS OF OTHER SERUM ENZYMES Comment: Troponin 0.07 and 0.05 Suspect demand ischemia. (5) HTN (hypertension) Code(s): I10 - ESSENTIAL (PRIMARY) HYPERTENSION Comment: Normotensive with IV labetalol. Resume losartan and amlodipine when taking PO. (6) Multiple sclerosis Code(s): G35 - MULTIPLE SCLEROSIS Comment: Severe, with contractures and dementia. Continue baclofen. (7) Hyponatremia Code(s): E87.1 - HYPO-OSMOLALITY AND HYPONATREMIA Comment: Chronic, Na+ 133 today. Resume demeclocycline BID when taking PO (8) Hypothyroidism Code(s): E03.9 - HYPOTHYROIDISM, UNSPECIFIED Comment: Hold levothyroxine while NPO, if she is NPO for more than a few days will start IV levothyroxine. (9) DVT prophylaxis Code(s): [id number] - Comment: Continue SQ heparin. (10) Full code status Code(s): Z78.9 - OTHER SPECIFIED HEALTH STATUS Status and Disposition: Inpatient. Discharge back to [facility] when medically stable. Repeat dysphagia screen and restart PO medications if safe.
[2016-06-18] MEDS: Baclofen TAB* 20 MG PO SCH ×2 (15:30→21:06)
[2016-06-18] MEDS: QUEtiapine XR TAB* 200 MG PO SCH (20:47)
[2016-06-18] MEDS: Docusate CAP* 100 MG PO SCH (20:51)
[2016-06-18] MEDS: Losartan TAB* 25 MG PO SCH (20:54)
[2016-06-18] MEDS: Labetalol TAB* 200 MG PO SCH (20:56)
[2016-06-18] MEDS: Phenytoin CAP(*) 100 MG CAP.ER PO SCH (20:57)
[2016-06-18] MEDS: Atorvastatin* 40 MG TAB PO SCH (21:04)
[2016-06-18] MEDS: Demeclocycline TAB* 150 MG PO SCH (21:05)
[2016-06-18] MEDS: Moisturizing CREAM* 120 GM JAR TOPICAL SCH (22:43)
[2016-06-19] MEDS: NS 0.9% 1000 ML* 1,000 ML IV SCH ×2 (03:35→17:06)
[2016-06-19] MEDS: Piperac/Tazob 3.375 gm in NS* 3.375 GM/100 ML BAG IVPB SCH ×2 (06:12→15:23)
[2016-06-19] MEDS: Heparin VIAL(*) 5000 UNITS/ML VIAL (FIVE THOUSAND) SUBCUT SCH ×3 (06:14→21:11)
[2016-06-19] MEDS: Levothyroxine TAB* 25 MCG TAB PO SCH (06:15)
--- NOTE | 2016-06-19 08:32 | PN ---
Subjective Date of Service: 06/19/16 Interval History: Patient seen and examined at bedside. She is sitting up and alert. She says, "Okay" when asked how she is feeling and squeezes my hand. She states, "No" when asked if she has any chest pain, generalized discomfort, SOB, abd pain, n/ v. Patient reportedly doing well with diet and taking medications. Telemetry: SR 60s-80s with occasional PVCs Family History: Unchanged from Admission Social History: Unchanged from Admission Past Medical History: Unchanged from Admission Objective Active Medications: Amlodipine Besylate (Norvasc Tab*) 10 mg PO QAM [facility] Aspirin (Aspirin Low Dose Tab*) 81 mg PO DAILY [facility] Atorvastatin Calcium (Lipitor*) 40 mg PO BEDTIME [facility] Last Admin: 06/18/16 21:04 Dose: 40 mg Baclofen (Lioresal Tab*) 20 mg PO TID [facility] Last Admin: 06/18/16 21:06 Dose: 20 mg Demeclocycline HCl (Declomycin Tab*) 150 mg PO BID [facility] Last Admin: 06/18/16 21:05 Dose: 150 mg Docusate Sodium (Colace Cap*) 200 mg PO BEDTIME [facility] Last Admin: 06/18/16 20:51 Dose: 200 mg Heparin Sodium (Porcine) (Heparin Vial(*)) 5,000 units SUBCUT Q8HR [facility] Last Admin: 06/19/16 06:14 Dose: 5,000 units Hydralazine HCl (Apresoline Iv*) 5 mg IV SLOW PU Q6H PRN PRN Reason: SBP>185 Last Admin: 06/18/16 15:54 Dose: 5 mg Sodium Chloride (Ns 0.9% 1000 Ml*) 1,000 mls @ 125 mls/hr IV PER RATE [facility] Last Admin: 06/19/16 03:35 Dose: 125 mls/hr Piperacillin Sod/Tazobactam Sod (Zosyn 3.375 Gm In Ns Premix*) 3.375 gm in 100 mls @ 25 mls/hr IVPB Q8H [facility] Last Admin: 06/19/16 06:12 Dose: 25 mls/hr Labetalol HCl (Trandate Tab*) 200 mg PO BID [facility] Last Admin: 06/18/16 20:56 Dose: 200 mg Levothyroxine Sodium (Synthroid Tab*) 50 mcg PO DAILY@0600 [facility] Last Admin: 06/19/16 06:15 Dose: 50 mcg Losartan Potassium (Cozaar Tab*) 100 mg PO BEDTIME [facility] Last Admin: 06/18/16 20:54 Dose: 100 mg Multi-Ingredient Ointment (Hydrocerin*) 1 applic TOPICAL BID [facility] Last Admin: 06/18/16 22:43 Dose: 1 applic Oxcarbazepine (Trileptal Tab(*)) 750 mg NG TUBE BID [facility] Last Admin: 06/18/16 21:07 Dose: 750 mg Phenytoin Sodium (Dilantin Cap(*)) 300 mg PO BEDTIME [facility] Last Admin: 06/18/16 20:57 Dose: 300 mg Quetiapine Fumarate (Seroquel Xr Tab*) 200 mg PO BEDTIME [facility] Last Admin: 06/18/16 20:47 Dose: 200 mg Vital Signs 06/18/16 06/18/16 06/18/16 15:48 19:55 20:00 Temperature 97.4 F 98.1 F Pulse Rate 80 79 Respiratory 18 20 18 Rate Blood Pressure 186/87 147/79 (mmHg) O2 Sat by Pulse 99 100 Oximetry 06/19/16 06/19/16 06/19/16 00:04 03:36 07:31 Temperature 98.0 F 98.0 F 98.1 F Pulse Rate 79 58 59 Respiratory 20 20 16 Rate Blood Pressure 128/64 144/68 166/76 (mmHg) O2 Sat by Pulse 100 100 100 Oximetry Oxygen Devices in Use Now: Nasal Cannula - 2.5L Appearance: Female patient, sitting up in bed, in NAD Eyes: No Scleral Icterus, PERRLA Ears/Nose/Mouth/Throat: - - flattening of nasolabial fold on right Respiratory: Symmetrical Chest Expansion and Respiratory Effort, Clear to Auscultation Cardiovascular: NL Sounds; No Murmurs; No JVD, RRR Abdominal: NL Sounds; No Tenderness; No Distention Extremities: - - with contractures to extremities Neurological: - - alert, follows commands, forms words "yes/no, okay, wonderful " Lines/Tubes/Other Access: Clean, Dry and Intact Peripheral IV Nutrition: Taking PO's Result Diagrams: 06/17/16 08:55 06/17/16 08:47 Additional Lab and Data: Microbiology and Other Data: Microbiology 06/17/16 04:35 Nasal Screen MRSA (PCR)(WILLIE) - Final Nasal Mrsa Negative Assess/Plan/Problems-Billing Assessment: Ms. Pepe is a 66 yo female with PMH significant for MS, seizure disorder and significant contractures, bipolar disorder and conversion disorder who presented to the hospital with concern for altered mental status. - Patient Problems (1) Altered mental status Code(s): R41.82 - ALTERED MENTAL STATUS, UNSPECIFIED Comment: Patient appears to be close to baseline. Bedside swallow screen done - patient tolerating pureed texture and nectar thick liquids/ Unclear etiology, perhaps secondary to UTI or seizure. (2) UTI (urinary tract infection) Comment: Culture growing enterococcus faecalis with sensitivities to penicillins and quinolones. Stop Zosyn and switch to Ciprofloxacin. (3) Seizure disorder Code(s): G40.909 - EPILEPSY, UNSP, NOT INTRACTABLE, WITHOUT STATUS EPILEPTICUS Comment: Seizures, likely related to UTI, which may have lowered her threshold. Patient is able to respond yes and no (with head shake) MRI of brain with no acute findings. Continue Dilantin IV and oxcarbazepine PO/NG (dose increased by Dr. Castaneda). Continue seizure precautions. (4) Elevated troponin Code(s): R74.8 - ABNORMAL LEVELS OF OTHER SERUM ENZYMES Comment: Troponin 0.07 and 0.05 Suspect demand ischemia. (5) HTN (hypertension) Code(s): I10 - ESSENTIAL (PRIMARY) HYPERTENSION Comment: SBP 120s-150s, continue home losartan and amlodipine. (6) Multiple sclerosis Code(s): G35 - MULTIPLE SCLEROSIS Comment: Severe, with contractures and dementia. Continue baclofen. (7) Hyponatremia Code(s): E87.1 - HYPO-OSMOLALITY AND HYPONATREMIA Comment: Chronic, within baseline. Na 133 on 06/18. Continue demeclocycline. (8) Hypothyroidism Code(s): E03.9 - HYPOTHYROIDISM, UNSPECIFIED Comment: Continue levothyroxine. (9) DVT prophylaxis Code(s): XMP2202 - Comment: Continue SQ heparin. (10) Full code status Code(s): Z78.9 - OTHER SPECIFIED HEALTH STATUS Status and Disposition: Inpatient. Discharge back to [facility] when medically stable, potentially tomorrow.
[2016-06-19] MEDS: OXcarbazepine TAB(*) 300 MG NG TUBE SCH ×2 (10:39→21:10)
[2016-06-19] MEDS: amLODIPine TAB* 5 MG PO SCH (10:41)
[2016-06-19] MEDS: Baclofen TAB* 20 MG PO SCH ×3 (10:41→21:10)
[2016-06-19] MEDS: Labetalol TAB* 200 MG PO SCH ×2 (10:41→21:10)
[2016-06-19] MEDS: Demeclocycline TAB* 150 MG PO SCH ×2 (10:41→21:10)
[2016-06-19] MEDS: Aspirin Low Dose CHEW TAB* 81 MG PO SCH (10:42)
[2016-06-19] MEDS: Moisturizing CREAM* 120 GM JAR TOPICAL SCH ×2 (10:42→21:45)
[2016-06-19] MEDS: Phenytoin CAP(*) 100 MG CAP.ER PO SCH (21:10)
[2016-06-19] MEDS: Losartan TAB* 25 MG PO SCH (21:10)
[2016-06-19] MEDS: Atorvastatin* 40 MG TAB PO SCH (21:10)
[2016-06-19] MEDS: Ciprofloxacin TAB* 500 MG PO SCH (21:11)
[2016-06-19] MEDS: QUEtiapine XR TAB* 200 MG PO SCH (21:11)
[2016-06-19] MEDS: Docusate CAP* 100 MG PO SCH (21:45)
[2016-06-20] MEDS: Levothyroxine TAB* 25 MCG TAB PO SCH (05:22)
[2016-06-20] MEDS: NS 0.9% 1000 ML* 1,000 ML IV SCH (05:24)
[2016-06-20] MEDS: Heparin VIAL(*) 5000 UNITS/ML VIAL (FIVE THOUSAND) SUBCUT SCH (05:25)
[2016-06-20] MEDS: Moisturizing CREAM* 120 GM JAR TOPICAL SCH (09:34)
[2016-06-20] MEDS: OXcarbazepine TAB(*) 300 MG NG TUBE SCH (09:34)
[2016-06-20] MEDS: Labetalol TAB* 200 MG PO SCH (09:35)
[2016-06-20] MEDS: amLODIPine TAB* 5 MG PO SCH (09:35)
[2016-06-20] MEDS: Ciprofloxacin TAB* 500 MG PO SCH (09:35)
[2016-06-20] MEDS: Demeclocycline TAB* 150 MG PO SCH (09:35)
[2016-06-20] MEDS: Aspirin Low Dose CHEW TAB* 81 MG PO SCH (09:35)
[2016-06-20] MEDS: Baclofen TAB* 20 MG PO SCH (09:35)
--- NOTE | 2016-06-20 10:39 | PN ---
Subjective Date of Service: 06/20/16 Interval History: Patient seen and examined at bedside. Raine is alert and sitting up in bed. She states, "No" when asked if she has any pain or discomfort or trouble breathing. She states, "I'm alright." I called and spoke with Reny Clemons, the patient's sister, who states that she saw Raine this weekend and feels she is back at baseline. She is in agreement with discharge to [facility] today. Family History: Unchanged from Admission Social History: Unchanged from Admission Past Medical History: Unchanged from Admission Objective Active Medications: Amlodipine Besylate (Norvasc Tab*) 10 mg PO QAM [facility] Last Admin: 06/20/16 09:35 Dose: 10 mg Aspirin (Aspirin Low Dose Tab*) 81 mg PO DAILY [facility] Last Admin: 06/20/16 09:35 Dose: 81 mg Atorvastatin Calcium (Lipitor*) 40 mg PO BEDTIME [facility] Last Admin: 06/19/16 21:10 Dose: 40 mg Baclofen (Lioresal Tab*) 20 mg PO TID [facility] Last Admin: 06/20/16 09:35 Dose: 20 mg Ciprofloxacin (Cipro Tab*) 500 mg PO Q12HR [facility] Last Admin: 06/20/16 09:35 Dose: 500 mg Demeclocycline HCl (Declomycin Tab*) 150 mg PO BID [facility] Last Admin: 06/20/16 09:35 Dose: 150 mg Docusate Sodium (Colace Cap*) 200 mg PO BEDTIME [facility] Last Admin: 06/19/16 21:45 Dose: 200 mg Heparin Sodium (Porcine) (Heparin Vial(*)) 5,000 units SUBCUT Q8HR [facility] Last Admin: 06/20/16 05:25 Dose: 5,000 units Hydralazine HCl (Apresoline Iv*) 5 mg IV SLOW PU Q6H PRN PRN Reason: SBP>185 Last Admin: 06/18/16 15:54 Dose: 5 mg Sodium Chloride (Ns 0.9% 1000 Ml*) 1,000 mls @ 125 mls/hr IV PER RATE [facility] Last Admin: 06/20/16 05:24 Dose: 125 mls/hr Labetalol HCl (Trandate Tab*) 200 mg PO BID [facility] Last Admin: 06/20/16 09:35 Dose: 200 mg Levothyroxine Sodium (Synthroid Tab*) 50 mcg PO DAILY@0600 [facility] Last Admin: 06/20/16 05:22 Dose: 50 mcg Losartan Potassium (Cozaar Tab*) 100 mg PO BEDTIME [facility] Last Admin: 06/19/16 21:10 Dose: 100 mg Multi-Ingredient Ointment (Hydrocerin*) 1 applic TOPICAL BID [facility] Last Admin: 06/20/16 09:34 Dose: 1 applic Oxcarbazepine (Trileptal Tab(*)) 750 mg PO BID [facility] Phenytoin Sodium (Dilantin Cap(*)) 300 mg PO BEDTIME [facility] Last Admin: 06/19/16 21:10 Dose: 300 mg Quetiapine Fumarate (Seroquel Xr Tab*) 200 mg PO BEDTIME [facility] Last Admin: 06/19/16 21:11 Dose: 200 mg Vital Signs 06/19/16 06/19/16 06/19/16 11:10 15:34 19:30 Temperature 98.2 F 98.5 F 98.4 F Pulse Rate 72 69 72 Respiratory 16 Rate Blood Pressure 150/91 169/93 153/76 (mmHg) O2 Sat by Pulse 100 98 98 Oximetry 06/19/16 06/20/16 06/20/16 20:00 00:23 04:02 Temperature 98.0 F 98.1 F Pulse Rate 58 58 Respiratory 18 20 20 Rate Blood Pressure 114/58 145/80 (mmHg) O2 Sat by Pulse 100 100 100 Oximetry 06/20/16 06/20/16 06/20/16 07:22 07:57 07:58 Temperature 98.2 F Pulse Rate 58 Respiratory 18 20 Rate Blood Pressure 148/80 (mmHg) O2 Sat by Pulse 100 100 Oximetry Oxygen Devices in Use Now: Nasal Cannula - 2.5L Appearance: Female patient, sitting up in bed, alert, in NAD Eyes: PERRLA Ears/Nose/Mouth/Throat: Clear Oropharnyx, Mucous Membranes Moist Neck: NL Appearance and Movements; NL JVP Respiratory: Symmetrical Chest Expansion and Respiratory Effort, Clear to Auscultation Cardiovascular: NL Sounds; No Murmurs; No JVD, RRR Abdominal: NL Sounds; No Tenderness; No Distention Extremities: - - contractures to extremities Skin: No Rash or Ulcers Neurological: - - alert, follows commands Lines/Tubes/Other Access: Clean, Dry and Intact Peripheral IV Nutrition: Taking PO's Result Diagrams: 06/17/16 08:55 06/17/16 08:47 Additional Lab and Data: Microbiology and Other Data: Microbiology 06/17/16 04:35 Nasal Screen MRSA (PCR)(WILLIE) - Final Nasal Mrsa Negative Assess/Plan/Problems-Billing Assessment: Ms. Pepe is a 66 yo female with PMH significant for MS, seizure disorder and significant contractures, bipolar disorder and conversion disorder who presented to the hospital with concern for altered mental status. - Patient Problems (1) Altered mental status Code(s): R41.82 - ALTERED MENTAL STATUS, UNSPECIFIED Comment: Patient appears to be at baseline per family. Bedside swallow screen done - patient tolerating pureed texture and nectar thick liquids. Unable to reach [facility] to see what previous diet was. Likely secondary to UTI or seizure. (2) UTI (urinary tract infection) Comment: Culture growing enterococcus faecalis with sensitivities to penicillins and quinolones. Continue ciprofloxacin for a 10 day course for complicated UTI. (3) Seizure disorder Code(s): G40.909 - EPILEPSY, UNSP, NOT INTRACTABLE, WITHOUT STATUS EPILEPTICUS Comment: Seizures, likely related to UTI, which may have lowered her threshold. No further seizure activity noted. MRI of brain with no acute findings. Continue phenytoin and oxcarbazepine PO (dose increased by Dr. Castaneda). Continue seizure precautions. (4) Elevated troponin Code(s): R74.8 - ABNORMAL LEVELS OF OTHER SERUM ENZYMES Comment: Troponin 0.07 and 0.05 Suspect demand ischemia. (5) HTN (hypertension) Code(s): I10 - ESSENTIAL (PRIMARY) HYPERTENSION Comment: SBP 120s-150s, continue home losartan and amlodipine. (6) Multiple sclerosis Code(s): G35 - MULTIPLE SCLEROSIS Comment: Severe, with contractures and dementia. Continue baclofen. (7) Hyponatremia Code(s): E87.1 - HYPO-OSMOLALITY AND HYPONATREMIA Comment: Chronic, within baseline. Na 133 on 06/18. Continue demeclocycline. (8) Hypothyroidism Code(s): E03.9 - HYPOTHYROIDISM, UNSPECIFIED Comment: Continue levothyroxine. (9) DVT prophylaxis Code(s): SDA8027 - Comment: Continue SQ heparin. (10) Full code status Code(s): Z78.9 - OTHER SPECIFIED HEALTH STATUS Status and Disposition: Inpatient. Discharge to [facility].
[2016-06-20 12:03] VITALS: BP 138/75
--- NOTE | 2016-06-20 12:06 | DS ---
DATE OF ADMISSION: 06/16/2016. DATE OF DISCHARGE: 06/20/2016. PROVIDER: Romeo Alvarez NP. ATTENDING PHYSICIAN: Dr. Sue Hwang* (as dictated by Romeo Alvarez NP). CONSULTING PHYSICIAN: Dr. Zoltan Castaneda. PRIMARY DISCHARGE DIAGNOSES: 1. Urinary tract infection. 2. Seizure disorder. 3. Altered mental status. SECONDARY DISCHARGE DIAGNOSES: 1. Multiple sclerosis. 2. Hypothyroidism. 3. Mild intermittent asthma. 4. Contractures. 5. Hardness of hearing. 6. Constipation. 7. Hypertension. 8. Hyperlipidemia. 9. Conversion disorder with seizures or convulsions. 10. Bipolar disorder. 11. Vitamin D deficiency. MEDICATIONS AT DISCHARGE: 1. Aspirin 81 mg q.a.m. 2. Diazepam 10 mg per rectum once prn. 3. Cholecalciferol 2000 units q.a.m. 4. Amlodipine 10 mg q.a.m. 5. Seroquel XR 200 mg at bedtime. 6. Labetalol 200 mg b.i.d. 7. Docusate 200 mg at bedtime. 8. Levothyroxine 50 mcg q.p.m. 9. Losartan 100 mg at bedtime. 10. Dilantin 300 mg at bedtime. 11. Acetaminophen 500 mg q.8 hours prn. 12. Labetalol 200 mg b.i.d. 13. Hydrophor one application topical b.i.d. 14. Demeclocycline 150 mg b.i.d. 15. QVAR inhaler two puffs inhaled b.i.d. 16. Baclofen 20 mg t.i.d. 17. Atorvastatin 40 mg at bedtime. 18. Nitroglycerin 0.4 mg sublingual q.5 minutes prn. 19. Trileptal 750 mg b.i.d. This is a change from previous dosing. 20. Ciprofloxacin 500 mg q.12 hours times 7 days. This is a new medication. DIAGNOSTIC TESTING DURING THIS ADMISSION: 1. CT brain, 06/16/2016: Impression: Cortical atrophy with chronic ischemic changes. No acute findings. 2. MRI of the brain, 06/16/2016: Impression: (1) No evidence for acute intracranial abnormality. (2) Atrophy and findings consistent with moderate to severe chronic small vessel ischemic changes. 3. EEG, 06/17/2016: REPORT: With the patient awake, background cerebral activity consists of admixed theta activity that reaches 6 to 7 Hz rhythm with some slower superimposed diffuse delta activity. During the tracing, there were right side of the face tics with shaking of left hand at other points. Sometimes shoulder and head jerking. There was no change in clinical background during any of these movements. The patient never fell asleep. No activation procedures were done. CLINICAL IMPRESSION: This awake EEG is abnormal because of diffuse slowing of background consistent with a generalized encephalopathy, but nonspecific as to etiology. There was a number of tics or shaking in both the head and extremities during this test, but no electrographic changes were noted during these movements. No epileptiform potentials were noted at any point during this tracing. HOSPITAL COURSE OF STAY: For full details, please refer to the full medical record and history and physical provided by nurse practitioner Diane Gatica from 06/16/2016. In summary, Ms. Pepe is a 66-year-old female with a past medical history as previously stated who presented to the ER with concern for unresponsiveness. Prior to arrival, she had a witnessed seizure at [facility] and was given valium with return to her baseline mental status. She then was unresponsive later on in the day and was brought to the emergency room for evaluation. She was admitted for further evaluation and received a neurology consult. The patient's Trileptal was increased from 600 mg in the morning to 750 mg in the morning and her nighttime 750 mg dose was continued. No changes to her Dilantin was made as her Dilantin level was appropriate. The patient was monitored on Telemetry with no significant arrhythmias seen. The patient does have occasional PAC's and PVC's. The patient was made NPO on June 17 as she was unable to follow single step commands such as closing her mouth. We did attempt to put an NG tube down to give the patient her necessary medications ; however, the family did decline this stating that they would like her to try p.o. when her family was present. Later on in the evening following her speech evaluation and swallow study, the patient was able to demonstrate safe swallowing with the nurse. We did repeat a bedside swallow screen and the patient did well with no signs of choking or aspiration. We did attempt to contact [facility] to find out what the patient's baseline diet was; however, it was the weekend and we were unable to reach any staff after multiple messages were left. The patient was started on a pureed diet with nectar thick liquids and has tolerated this well. We have restarted her medications and she is taking all of her medications and diet without any incident while remaining aspiration precautions. In regards to her UTI, the patient has been treated with Zosyn while here in the hospital. Her urine culture shows enterococcus faecalis which is sensitive to Ciprofloxacin and she has been switched to Cipro to continue for an additional seven days for a complete ten day course. On today, 06/20/2016, I did call the patient's sister who stated that she saw Raine over the weekend and stated that she is at her baseline. She is in agreement for discharge today back to [facility]. Of note, the speech therapist has just completed a swallow study this morning and continues to recommend nectar thick liquids and pureed solids for the patient. Per the speech therapy notes, the patient was trialed on thin liquids this morning and presented with concern for aspiration penetration of the throat secondary to throat clearing times two episodes. The current speech therapy recommendations are to continue the patient on nectar thick liquids and pureed solids. The patient has no other concerns and has not exhibited any further seizure activity. CONCERNS AT DISCHARGE: Raine Pepe will be discharged back to [facility] on 06/20/2016 and she will follow-up with Dr. Wong or other facility physician. DIET: Pureed diet with nectar thick liquids. Any further changes to the patient's diet should be made after the patient completes a swallow study. ACTIVITY: As tolerated. CONDITION: Stable. DISPOSITION: To [facility]. TIME SPENT: Time spent on this discharge was approximately 45 minutes. Again, this is only a brief summary of the patient's hospital course of stay. For further details, please refer to the full medical record. If you have any further questions or need further assistance, please feel free to contact me at . ROMEO ALVAREZ NP CC: Dr. Arpit Wong, [facility]* [id number]/[facility] #: [id number] [facility]
[2016-06-20] MEDS ORDERED: OXcarbazepine TAB(*) 300 MG PO SCH (21:00)
== END 2016-06-20 14:30 | DRG 100 ==
LOC: ED 16:04 → MEDTELE 18:23
PROVIDERS: ADMIT Internal Medicine; ATTEND Internal Medicine
DX: G40.909 Epilepsy, unspecified, not intractable, without status epilepticus (principal); G82.50 Quadriplegia, unspecified; G35 Multiple sclerosis; E87.1 Hypo-osmolality and hyponatremia; N39.0 Urinary tract infection, site not specified; B95.2 Enterococcus as the cause of diseases classified elsewhere; E03.9 Hypothyroidism, unspecified; J45.20 Mild intermittent asthma, uncomplicated; M24.50 Contracture, unspecified joint; H91.90 Unspecified hearing loss, unspecified ear; K59.00 Constipation, unspecified; I10 Essential (primary) hypertension; E78.5 Hyperlipidemia, unspecified; F44.5 Conversion disorder with seizures or convulsions; E73.9 Lactose intolerance, unspecified; F31.9 Bipolar disorder, unspecified; R78.89 Finding of other specified substances, not normally found in blood; E55.9 Vitamin D deficiency, unspecified; Z79.82 Long term (current) use of aspirin; Z88.8 Allergy status to other drugs, medicaments and biological substances
CPT/HCPCS: 36415; 70450; 70551; 71010; 80048; 80053; 80061; 80183; 80185; 81003; 81015; 83605; 84484; 85025; 85610; 85730; 86850; 86900; 86901; 87077; 87086; 87186; 87641; 93005; 95819; A9270-GY; G8996-GN-CN; G8997-GN-CL; J0360; J1165; J1644; J2543

== ENCOUNTER 2016-07-01 23:48 | Emergency (ER) | payer MEDICARE, BC, MEDICAID ==
[2016-07-02 04:13] LABS: Phenytoin 26.2 mcg/mL (10-20)
[2016-07-02 04:19] LABS: Albumin 3.8 g/dL (3.2-5.2); BUN/Creatinine Ratio 16.3 (8-20); Calcium 9.6 mg/dL (8.6-10.3); EGFR African American 162.5 (>60); EGFR Non-African American 126.4 (>60); Globulin 3.4 g/dL (2-4); Magnesium 1.8 mg/dL (1.9-2.7); Potassium 4.3 mmol/L (3.5-5.0); Total Bilirubin 0.4 mg/dL (0.2-1.0); Total Protein 7.2 g/dL (6.4-8.9)
[2016-07-02] MEDS ORDERED: NS 0.9% 500 ML BAG* 500 ML IV SCH (05:00)
[2016-07-02 05:21] LABS: Add Diff/Slide Review? Manual Diff Added; Comments Flag Yes; Hematocrit 41 % (35-47); Hemoglobin 13.5 g/dl (12.0-16.0); Mean Corpuscular HGB Conc 33 g/dl (31-36); Mean Corpuscular Hemoglobin 31 pg (27-31); Mean Corpuscular Volume 94 fL (80-97); Red Blood Count 4.33 10^6/ul (4.0-5.4); Red Cell Distribution Width 14 % (10.5-15)
[2016-07-02 05:42] LABS: White Blood Count 8.7 10^3/ul (3.5-10.8)
[2016-07-02 05:44] LABS: Eosinophils % 3 % (0-6); Neutrophil % 53 % (38-83); RBC Morphology Normal (Normal)
[2016-07-02 05:45] LABS: Urine Bacteria Absent (Absent); Urine Bilirubin Negative (Negative); Urine Glucose Negative (Negative); Urine Nitrite Negative (Negative)
[2016-07-02] MEDS ORDERED: NS 0.9% 500 ML BAG* 500 ML IV ONE (06:00)
[2016-07-02 07:05] VITALS: BP 145/91
[2016-07-02] MEDS ORDERED: Sulfamethox/Trimethoprim DS 800/160* TAB PO ONE (07:05)
--- NOTE | 2016-07-02 08:10 | RAD ---
INDICATION: Seizures. COMPARISON: Comparison is made with a prior MRI of the brain from June 16, [address] of the brain also from June 16, 2016. TECHNIQUE: Contiguous axial sections of the brain were obtained from the skull base to the vertex without contrast. FINDINGS: The ventricles, cisterns and sulci are enlarged consistent with diffuse atrophy. There are multiple areas of decreased attenuation present in the subcortical and periventricular white matter on both sides most consistent with chronic small vessel ischemic changes. No other focal abnormality or mass effect is seen. There is no evidence for hemorrhage. No significant focal osseous abnormality is seen. The visualized portion of the paranasal sinuses and mastoid air cells appear clear. IMPRESSION: 1. NO EVIDENCE FOR GROSS ACUTE INFARCT, MASS EFFECT OR HEMORRHAGE. 2. ATROPHY AND FINDINGS SUGGESTIVE OF MODERATE TO SEVERE CHRONIC SMALL VESSEL ISCHEMIC CHANGES.
--- NOTE | 2016-07-06 22:50 | ED ---
Luana Harp Erika, scribed for Rafael Wilson MD on 07/02/16 at 0256 . Neurological HPI - HPI Summary HPI Summary: Patient is a 66-year-old female presenting to the ED with a CC of seizure. Patient has a Hx seizures. LEVEL 5 CAVEAT - UNABLE TO PROVIDE Hx - Dementia, MS , AMS/post-ictal. - History of Current Complaint Chief Complaint: EDSeizure Stated Complaint: GENERAL ILLNESS Time Seen by Provider: 07/02/16 00:23 Hx Obtained From: Family/Ammonium Nitrate Crystallizer Hx From Patient Unobtainable Due To: Other - LEVEL 5 CAVEAT - UNABLE TO PROVIDE Hx - Dementia, MS, AMS/post-ictal. - Additional Pertinent History Primary Care Physician: LINDSEY - Allergy/Home Medications Allergies/Adverse Reactions: Allergies Allergy/AdvReac Type Severity Reaction Status Date / Time Chlorpromazine Allergy Unknown Unknown Verified 11/30/12 03:35 Reaction Details Glatiramer [From Copaxone] Allergy Unknown Unknown Verified 11/30/12 03:35 Reaction Details Mannitol [From Copaxone] Allergy Unknown Unknown Verified 11/30/12 03:35 Reaction Details Lactose Intolerance (GI) Allergy Diarrhea Verified 05/04/15 12:52 glucosteroids Allergy Unknown Unknown Uncoded 11/30/12 03:35 Reaction Details PMH/Surg Hx/FS Hx/Imm Hx Cardiovascular History: Reports: Hx Hypercholesterolemia, Hx Hypertension Denies: Hx Pacemaker/ICD Respiratory History: Reports: Hx Asthma, Hx Pneumonia Denies: Hx Chronic Bronchitis, Hx Chronic Obstructive Pulmonary Disease (COPD ), Hx Cystic Fibrosis, Hx Lung Cancer, Hx Pleural Effusion, Hx Pulmonary Edema, Hx Pulmonary Embolism, Hx Seasonal Allergies, Hx Sleep Apnea, Other Respiratory Problems/Disorders Musculoskeletal History: Reports: Other Musculoskeletal History - Break in R foot, CONTRACTURES PER REPORT Denies: Hx Arthritis, Hx Back Problems, Hx Bursitis, Hx Congenital Bone Abnormalities, Hx Fibromyalgia, Hx Gout, Hx Orthopedic Injury, Hx Osteoporosis, Hx Scoliosis, Hx Tendonitis Sensory History: Reports: Hx Contacts or Glasses Denies: Hx Cataracts, Hx Eye Injury, Hx Eye Prosthesis, Hx Glaucoma, Hx Legally Blind, Hx Macular Degeneration, Hx Vision Problem, Hx Deafness, Hx Hearing Aid, Hx Hearing Problem, Other Sensory Impairments Opthamlomology History: Reports: Hx Contacts or Glasses Denies: Hx Cataracts, Hx Eye Injury, Hx Eye Prosthesis, Hx Glaucoma, Hx Legally Blind, Hx Macular Degeneration, Hx Vision Problem, Other Sensory Impairments Neurological History: Reports: Hx Dementia, Hx Nerve Disease, Hx Seizures, Other Neuro Impairments/Disorders - MS Denies: Hx Developmental Delay, Hx Headaches, Hx Migraine, Hx Spinal Cord Injury, Hx Transient Ischemic Attacks (TIA) Psychiatric History: Reports: Hx Depression, Hx Schizophrenia, Hx Bipolar Disorder Denies: Hx Anxiety, Hx Attention Deficit Hyperactivity Disorder, Hx Eating Disorder, Hx Panic Disorder, Hx Post Traumatic Stress Disorder, Hx Inpatient Treatment, Hx Community Mental Health Tx, Hx Suicide Attempt, Hx of Violent Episodes Against Others, Hx Substance Abuse, Other Psychiatric Issues/Disorders - Surgical History Surgery Procedure, Year, and Place: FX LEFT FOOT WITH ORIF, LAZY EYE SURGERY A CHILD Hx Anesthesia Reactions: No Infectious Disease History: Unable to Obtain/Confirm Infectious Disease History: Denies: Hx Tuberculosis, Traveled Outside the [place] in Last 30 Days - Family History Known Family History: Positive: Unknown - LEVEL 5 CAVEAT - UNABLE TO PROVIDE Hx - Dementia, MS, AMS/post-ictal. - Social History Alcohol Use: None Substance Use Type: Reports: None Smoking Status (MU): Unknown if Ever Smoked Type: Cigarettes Have You Smoked in the Last Year: No Review of Systems - ROS Summary Review of Systems Summary: LEVEL 5 CAVEAT - UNABLE TO PROVIDE Hx - Dementia, MS, AMS/post-ictal. Neurological: Other - seizure All Other Systems Reviewed And Are Negative: No Physical Exam - Summary Physical Exam Summary: Constitutional: Well-developed, Well-nourished, Alert. (-) Distressed Skin: Warm, Dry HENT: Normocephalic; Atraumatic Eyes: Conjunctiva normal. mild disconjugate gaze Neck: Musculoskeletal ROM normal neck. (-) JVD, (-) Stridor, (-) Tracheal deviation Cardio: Rhythm regular, rate normal, Heart sounds normal; Intact distal pulses; The pedal pulses are 2+ and symmetric. Radial pulses are 2+ and symmetric. (-) Murmur Pulmonary/Chest wall: Effort normal. (-) Respiratory distress, (-) Wheezes, (-) Rales Abd: Soft, (-) Tenderness, (-) Distension, (-) Guarding, (-) Rebound Musculoskeletal: (-) Edema Lymph: (-) Cervical adenopathy Triage Information Reviewed: Yes Vital Signs On Initial Exam: Initial Vitals Temp Pulse Resp BP Pulse Ox 99.4 F 72 12 148/115 99 07/01/16 23:55 07/01/16 23:55 07/01/16 23:55 07/01/16 23:55 07/01/16 23:55 Vital Signs Reviewed: Yes Completion Of Physical Exam Limited Due To: Dementia, Altered Mental Status, Level 5 Procedures - Procedure Summary Procedure Summary: US guided IV placement. Visualized multiple peripheral vessels that were compressible and non-pulsatile. However they were unable to be cannulated. Some blood tubes were able to be filled, others were not. Clinically stable in the ED and we will continue to observe her. Diagnostics - Vital Signs Vital Signs Temp Pulse Resp BP Pulse Ox 07/01/16 23:55 99.4 F 72 12 148/115 99 - Laboratory Result Diagrams: 07/02/16 05:00 07/02/16 03:30 Lab Statement: Any lab studies that have been ordered have been reviewed, and results considered in the medical decision making process. - CT Brain CT CT Interpretation Completed By: Radiologist - There is no CT evidence of acute territorial infarction. Stable chronic infarction in bilateral supratentorial watershed districution within the centrum semiovale and locke radiate Patchy periventricular and subcortical wite matter hypoattenuations seen. These are nonspecific and can be seen in the setting of chronic microvascular ischemic changes. Intracranial vascular calcifications noted. There is no acute intracranial hemorrhage, mass effect, or cerebral edema identified. The ventricles are stable. Basilar cisterns are patent. No abnormal intra-axial or extra-axial fluid collection is seen. The bones of the calvarium and imaged skull base demonstrate no acute abnormality. The imaged paranasal sinuses and mastoid air cells are unremarkable. Imaged orbits are stable. Re-Evaluation - Re-Evaluation First Eval Re-Evaluation Time: 06:28 Comment: More alert and answering simple questions Course/Dx - Diagnoses Provider Diagnoses: Seizure, UTI (urinary tract infection) Discharge - Discharge Plan Condition: Stable Disposition: HOME Patient Education Materials: Recurrent Seizures in Adults (ED), Urinary Tract Infection in Women (ED) Referrals: Arpit Wong MD [Primary Care Provider] - Additional Instructions: RETURN TO THE EMERGENCY DEPARTMENT FOR CHANGING OR WORSENING SYMPTOMS. Please follow up with your neurologist and PCP in 3-5 days. The documentation as recorded by the Luana white Erika accurately reflects the service I personally performed and the decisions made by me, Rafael Wilson MD.
== END 2016-07-02 07:20 | disposition home or self-care (01) ==
LOC: ED 23:48
DX: N39.0 Urinary tract infection, site not specified (principal); R56.9 Unspecified convulsions
CPT/HCPCS: 36415; 70450; 80053; 80185; 81003; 81015; 83605; 83735; 85025; 85610; 87086; 99283; A9270-GY

== ENCOUNTER 2016-07-28 19:55 | Emergency (ER) | payer MEDICARE, BC, MEDICAID ==
[2016-07-28] MEDS ORDERED: NS 0.9% 1000 ML* 1,000 ML IV SCH (21:00)
[2016-07-28 21:45] LABS: Hematocrit 34 % (35-47); Hemoglobin 11.5 g/dl (12.0-16.0); Mean Corpuscular HGB Conc 33 g/dl (31-36); Mean Corpuscular Hemoglobin 31 pg (27-31); Mean Corpuscular Volume 93 fL (80-97); Mean Platelet Volume 7 um3 (7.4-10.4); Red Cell Distribution Width 13 % (10.5-15); White Blood Count 5.5 10^3/ul (3.5-10.8)
--- NOTE | 2016-07-28 21:51 | RAD ---
INDICATION: Seizure COMPARISON: Chest x-ray dated June 16, 2016 TECHNIQUE: Single AP portable view of the chest was obtained. FINDINGS: Image quality is compromised due to the relative inferiority of a portable chest x-ray. The heart and mediastinum exhibit normal size and contour. The lungs are grossly clear. There is no evidence of a large pleural effusion. Visualized bones are normal for the patient's age. Similar to the previous chest x-ray multiple air-filled loops of bowel are noted, but there is no definite pathologic dilatation of the bowel. IMPRESSION: No radiographic evidence for acute cardiopulmonary abnormality on this portable chest x-ray.
[2016-07-28 22:02] LABS: Urine Bacteria Absent (Absent); Urine Bilirubin Negative (Negative); Urine Glucose Negative (Negative); Urine Nitrite Negative (Negative)
[2016-07-28 22:03] LABS: ALT 15 U/L (7-52); Albumin 3.3 g/dL (3.2-5.2); Alkaline Phosphatase 99 U/L (34-104); BUN/Creatinine Ratio 15.9 (8-20); Blood Urea Nitrogen 7 mg/dL (6-24); C Reactive Protein 4.55 mg/L (< 5.00); CO2 Carbon Dioxide 24 mmol/L (22-32); Calcium 8.8 mg/dL (8.6-10.3); Chloride 95 mmol/L (101-111); Creatine Kinase 91 U/L (10-223); EGFR Non-African American 143.1 (>60); Glucose 88 mg/dL (70-100); Lipase 61 U/L (11.0-82.0); Magnesium 1.8 mg/dL (1.9-2.7); Sodium 126 mmol/L (133-145); Total Protein 6.3 g/dL (6.4-8.9); Troponin I 0.01 ng/mL (<0.04)
[2016-07-28 22:37] LABS: TSH (Thyroid Stimulating Horm) 1.75 mcIU/mL (0.34-5.60)
--- NOTE | 2016-07-28 23:18 | ED ---
Shasha Harp Anna, scribed for Gregory Desai MD on 07/28/16 at 2000 . Altered Mental Status - HPI Summary HPI Summary: Patient is a 66 y/o female BIBA to [facility] presenting with AMS that began this evening at 1900. Per her senior care, the patient had several seizures this evening. She was given Valium at 1700. At 1900 she had difficulty breathing and was put on O2. She was not responsive, and 911 was called. Per EMS, pt was given .4-.5 of Narcan RECEIPT AND REPORT CLERK. Since the administration, the patient has gone from being only physically responsive to being verbally responsive. Hx is significant for seizure disorder, dementia, AMS/post-ictal. LEVEL 5 CAVEAT UNABLE TO OBTAIN FULL HISTORY DUE TO AMS - History Of Current Complaint Chief Complaint: EDSeizure Stated Complaint: SEIZURE Hx Obtained From: EMS, Other: - half-way Hx From Patient Unobtainable Due To: Altered Mental Status - Allergies/Home Medications Allergies/Adverse Reactions: Allergies Allergy/AdvReac Type Severity Reaction Status Date / Time Chlorpromazine Allergy Unknown Unknown Verified 11/30/12 03:35 Reaction Details Glatiramer [From Copaxone] Allergy Unknown Unknown Verified 11/30/12 03:35 Reaction Details Mannitol [From Copaxone] Allergy Unknown Unknown Verified 11/30/12 03:35 Reaction Details Lactose Intolerance (GI) Allergy Diarrhea Verified 05/04/15 12:52 glucosteroids Allergy Unknown Unknown Uncoded 11/30/12 03:35 Reaction Details PMH/Surg Hx/FS Hx/Imm Hx Cardiovascular History: Reports: Hx Hypercholesterolemia, Hx Hypertension Denies: Hx Pacemaker/ICD Respiratory History: Reports: Hx Asthma, Hx Pneumonia Denies: Hx Chronic Bronchitis, Hx Chronic Obstructive Pulmonary Disease (COPD ), Hx Cystic Fibrosis, Hx Lung Cancer, Hx Pleural Effusion, Hx Pulmonary Edema, Hx Pulmonary Embolism, Hx Seasonal Allergies, Hx Sleep Apnea, Other Respiratory Problems/Disorders Musculoskeletal History: Reports: Other Musculoskeletal History - Break in R foot, CONTRACTURES PER REPORT Denies: Hx Arthritis, Hx Back Problems, Hx Bursitis, Hx Congenital Bone Abnormalities, Hx Fibromyalgia, Hx Gout, Hx Orthopedic Injury, Hx Osteoporosis, Hx Scoliosis, Hx Tendonitis Sensory History: Reports: Hx Contacts or Glasses Denies: Hx Cataracts, Hx Eye Injury, Hx Eye Prosthesis, Hx Glaucoma, Hx Legally Blind, Hx Macular Degeneration, Hx Vision Problem, Hx Deafness, Hx Hearing Aid, Hx Hearing Problem, Other Sensory Impairments Opthamlomology History: Reports: Hx Contacts or Glasses Denies: Hx Cataracts, Hx Eye Injury, Hx Eye Prosthesis, Hx Glaucoma, Hx Legally Blind, Hx Macular Degeneration, Hx Vision Problem, Other Sensory Impairments Neurological History: Reports: Hx Dementia, Hx Nerve Disease, Hx Seizures, Other Neuro Impairments/Disorders - MS Denies: Hx Developmental Delay, Hx Headaches, Hx Migraine, Hx Spinal Cord Injury, Hx Transient Ischemic Attacks (TIA) Psychiatric History: Reports: Hx Depression, Hx Schizophrenia, Hx Bipolar Disorder Denies: Hx Anxiety, Hx Attention Deficit Hyperactivity Disorder, Hx Eating Disorder, Hx Panic Disorder, Hx Post Traumatic Stress Disorder, Hx Inpatient Treatment, Hx Community Mental Health Tx, Hx Suicide Attempt, Hx of Violent Episodes Against Others, Hx Substance Abuse, Other Psychiatric Issues/Disorders - Surgical History Surgery Procedure, Year, and Place: FX LEFT FOOT WITH ORIF, LAZY EYE SURGERY A CHILD Hx Anesthesia Reactions: No Infectious Disease History: Denies: Hx Tuberculosis - Family History Known Family History: Positive: Other - Hx - Dementia, MS, AMS/post-ictal. - Social History Occupation: Retired [facility]: [facility] Alcohol Use: None Substance Use Type: Reports: None Smoking Status (MU): Unknown if Ever Smoked Type: Cigarettes Have You Smoked in the Last Year: No Review of Systems - ROS Summary Review of Systems Summary: LEVEL 5 CAVEAT UNABLE TO OBTAIN FULL HISTORY DUE TO AMS Positive: Shortness Of Breath Neurological: Other - AMS Positive: Syncope - Seizure All Other Systems Reviewed And Are Negative: No Physical Exam Triage Information Reviewed: Yes Vital Signs On Initial Exam: Temp Pulse Resp BP Pulse Ox 98.1 F 66 14 114/67 100 07/28/16 19:55 07/28/16 19:58 07/28/16 19:58 07/28/16 19:55 07/28/16 19:58 Vital Signs Reviewed: Yes Appearance: Positive: Well-Appearing, No Pain Distress Skin: Positive: Warm, Skin Color Reflects Adequate Perfusion, Dry Head/Face: Positive: Normal Head/Face Inspection Eyes: Positive: Other: - Pupils 3mm. Minimally reactive. ENT: Positive: Normal ENT inspection Neck: Positive: Supple, Nontender Respiratory/Lung Sounds: Positive: Clear to Auscultation, Breath Sounds Present Cardiovascular: Positive: RRR Abdomen Description: Positive: Nontender, Soft Bowel Sounds: Positive: Present Musculoskeletal: Positive: Normal, Strength/ROM Intact Neurological: Positive: Other - Pt is responsive to voice Diagnostics - Vital Signs Vital Signs Temp Pulse Resp BP Pulse Ox 07/28/16 21:30 63 14 98/59 100 07/28/16 21:00 65 95/53 100 07/28/16 20:30 64 118/63 100 07/28/16 20:11 65 100 07/28/16 20:09 130/71 07/28/16 19:58 66 14 100 07/28/16 19:55 98.1 F 65 16 114/67 100 - Laboratory Lab Results: Lab Results 07/28/16 07/28/16 07/28/16 Range/Units 21:35 21:35 21:35 WBC 5.5 (3.5-10.8) 10^3/ul RBC 3.70 L (4.0-5.4) 10^6/ul Hgb 11.5 L (12.0-16.0) g/dl Hct 34 L (35-47) % MCV 93 (80-97) fL MCH 31 (27-31) pg MCHC 33 (31-36) g/dl RDW 13 (10.5-15) % Plt Count 309 (150-450) 10^3/ul MPV 7 L (7.4-10.4) um3 Neut % (Auto) 37.5 L (38-83) % Lymph % (Auto) 46.5 (25-47) % [place] % (Auto) 9.9 H (1-9) % Eos % (Auto) 4.3 (0-6) % Baso % (Auto) 1.8 (0-2) % Absolute Neuts (auto) 2.1 (1.5-7.7) 10^3/ul Absolute Lymphs (auto) 2.6 (1.0-4.8) 10^3/ul Absolute Monos (auto) 0.5 (0-0.8) 10^3/ul Absolute Eos (auto) 0.2 (0-0.6) 10^3/ul Absolute Basos (auto) 0.1 (0-0.2) 10^3/ul Absolute Nucleated RBC 0 10^3/ul Nucleated RBC % 0 INR (Anticoag Therapy) 1.00 (0.89-1.11) APTT 27.2 (26.0-36.3) seconds Sodium 126 L (133-145) mmol/L Potassium TNP Chloride 95 L (101-111) mmol/L Carbon Dioxide 24 (22-32) mmol/L Anion Gap TNP BUN 7 (6-24) mg/dL Creatinine 0.44 L (0.51-0.95) mg/dL Est GFR ( Amer) 184.0 (>60) Est GFR (Non-Af Amer) 143.1 (>60) BUN/Creatinine Ratio 15.9 (8-20) Glucose 88 (70-100) mg/dL Lactic Acid (0.5-2.0) mmol/L Calcium 8.8 (8.6-10.3) mg/dL Magnesium 1.8 L (1.9-2.7) mg/dL Total Bilirubin 0.40 (0.2-1.0) mg/dL AST TNP ALT 15 (7-52) U/L Alkaline Phosphatase 99 (34-104) U/L Total Creatine Kinase 91 (10-223) U/L CK-MB (CK-2) 1.3 (0.6-6.3) ng/mL Troponin I 0.01 (<0.04) ng/mL C-Reactive Protein 4.55 (< 5.00) mg/L Total Protein 6.3 L (6.4-8.9) g/dL Albumin 3.3 (3.2-5.2) g/dL Globulin 3.0 (2-4) g/dL Albumin/Globulin Ratio 1.1 (1-3) Lipase 61 (11.0-82.0) U/L TSH 1.75 (0.34-5.60) mcIU/mL Urine Color Urine Appearance Urine pH (5-9) Ur Specific [place] (1.010-1.030) Urine Protein (Negative) Urine Ketones (Negative) Urine Blood (Negative) Urine Nitrate (Negative) Urine Bilirubin (Negative) Urine Urobilinogen (Negative) Ur Leukocyte Esterase (Negative) Urine WBC (Auto) (Absent) Urine RBC (Auto) (Absent) Ur Squamous Epith Cells (Absent) Urine Bacteria (Absent) Urine Glucose (Negative) Urine Ascorbic Acid (Negative) Carbamazepine 2.0 L (4.0-12.0) mcg/mL 07/28/16 07/28/16 Range/Units 21:35 21:50 WBC (3.5-10.8) 10^3/ul RBC (4.0-5.4) 10^6/ul Hgb (12.0-16.0) g/dl Hct (35-47) % MCV (80-97) fL MCH (27-31) pg MCHC (31-36) g/dl RDW (10.5-15) % Plt Count (150-450) 10^3/ul MPV (7.4-10.4) um3 Neut % (Auto) (38-83) % Lymph % (Auto) (25-47) % [place] % (Auto) (1-9) % Eos % (Auto) (0-6) % Baso % (Auto) (0-2) % Absolute Neuts (auto) (1.5-7.7) 10^3/ul Absolute Lymphs (auto) (1.0-4.8) 10^3/ul Absolute Monos (auto) (0-0.8) 10^3/ul Absolute Eos (auto) (0-0.6) 10^3/ul Absolute Basos (auto) (0-0.2) 10^3/ul Absolute Nucleated RBC 10^3/ul Nucleated RBC % INR (Anticoag Therapy) (0.89-1.11) APTT (26.0-36.3) seconds Sodium (133-145) mmol/L Potassium Chloride (101-111) mmol/L Carbon Dioxide (22-32) mmol/L Anion Gap BUN (6-24) mg/dL Creatinine (0.51-0.95) mg/dL Est GFR ( Amer) (>60) Est GFR (Non-Af Amer) (>60) BUN/Creatinine Ratio (8-20) Glucose (70-100) mg/dL Lactic Acid 0.9 (0.5-2.0) mmol/L Calcium (8.6-10.3) mg/dL Magnesium (1.9-2.7) mg/dL Total Bilirubin (0.2-1.0) mg/dL AST ALT (7-52) U/L Alkaline Phosphatase (34-104) U/L Total Creatine Kinase (10-223) U/L CK-MB (CK-2) (0.6-6.3) ng/mL Troponin I (<0.04) ng/mL C-Reactive Protein (< 5.00) mg/L Total Protein (6.4-8.9) g/dL Albumin (3.2-5.2) g/dL Globulin (2-4) g/dL Albumin/Globulin Ratio (1-3) Lipase (11.0-82.0) U/L TSH (0.34-5.60) mcIU/mL Urine Color Yellow Urine Appearance Cloudy Urine pH 7.0 (5-9) Ur Specific [place] 1.024 (1.010-1.030) Urine Protein 1+(30 mg/dl) H (Negative) Urine Ketones Trace H (Negative) Urine Blood Negative (Negative) Urine Nitrate Negative (Negative) Urine Bilirubin Negative (Negative) Urine Urobilinogen Negative (Negative) Ur Leukocyte Esterase 1+ H (Negative) Urine WBC (Auto) Trace(0-5/hpf) (Absent) Urine RBC (Auto) Absent (Absent) Ur Squamous Epith Cells Present H (Absent) Urine Bacteria Absent (Absent) Urine Glucose Negative (Negative) Urine Ascorbic Acid * H (Negative) Carbamazepine (4.0-12.0) mcg/mL Result Diagrams: 07/28/16 21:35 07/28/16 21:35 Lab Statement: Any lab studies that have been ordered have been reviewed, and results considered in the medical decision making process. - Radiology CXR Xray Interpretation: No Acute Changes Radiology Interpretation Completed By: Radiologist - IMPRESSION: No radiographic evidence for acute cardiopulmonary abnormality on this portable chest x-ray. Re-Evaluation - Re-Evaluation First Eval Re-Evaluation Time: 23:01 Comment: O2 turned off. Pt O2 sat on RA 99%. Altered Mental Statu Course/Dx - Course Course Of Treatment: CRITICAL CARE TIME LESS THAN 30 MINUTES Assessment/Plan: IMPROVED IN ED. PATIENT STILL POST ICTAL. PATIENT NO LONGER HYPOXIC ON ROOM AIR. WITH HX OF SEIZURES, NO UTI; PATIENT ABLE TO BE DICHARGE BACK TO HER [facility] STABLE. - Diagnoses Discharge Diagnoses: Seizure - Provider Notifications Discussed Care Of Patient With: Dr. Nathan (hospitalist) at 2250. Recommends checking the patient's breathing to see if she can breathe without the use of the O2. Discharge - Discharge Plan Condition: Stable Disposition: HOME Patient Education Materials: Epilepsy (ED) Referrals: Arpit Wong MD [Primary Care Provider] - Additional Instructions: FOLLOW UP WITH YOUR DOCTOR. TAKE YOUR ANTI SEIZURE MEDICATIONS DIRECTED. CALL YOUR DOCTOR TO DETERMINE IF YOU NEED AN ANTI SEIZURE MEDICATION DOSE CHANGE. RETURN TO THE EMERGENCY DEPARTMENT FOR ANY WORSENING OF YOUR CONDITION OR QUESTIONS OR CONCERNS. The documentation as recorded by the Shasha white Anna accurately reflects the service I personally performed and the decisions made by me, Gregory Desai MD.
[2016-07-28 23:26] VITALS: BP 113/62
== END 2016-07-28 23:42 | disposition home or self-care (01) ==
LOC: ED 19:55
DX: R56.9 Unspecified convulsions (principal)
CPT/HCPCS: 36415; 71010; 80053; 80156; 81003; 81015; 82550; 82553; 83605; 83690; 83735; 84443; 84484; 85025; 85610; 85730; 86140; 87086; 99283

== ENCOUNTER 2018-06-16 12:48 | Emergency (ER) | payer MEDICARE, MEDICAID ==
--- NOTE | 2018-06-16 12:59 | ED ---
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 Per EMS, the patient is on a pureed food diet at the care home. Per EMS, the care home has an ordered outpatient test for her. - History of Current Complaint Stated Complaint: POSS AIRWAY OBSTRUCTION PER EMS Hx Obtained From: EMS Onset/Duration: Sudden Onset, Lasting Days, Still Present - Allergy/Home Medications Allergies/Adverse Reactions: Allergies Allergy/AdvReac Type Severity Reaction Status Date / Time MS Chlorpromazine Allergy Unknown Unknown Verified 11/30/12 03:35 [Chlorpromazine] Reaction Details MS Glatiramer [From Copaxone] Allergy Unknown Unknown Verified 11/30/12 03:35 Reaction Details MS Mannitol [From Copaxone] Allergy Unknown Unknown Verified 11/30/12 03:35 Reaction Details MS Lactose Intolerance (GI) Allergy Diarrhea Verified 05/04/15 12:52 [Lactose Intolerance (GI)] glucosteroids Allergy Unknown Unknown Uncoded 11/30/12 03:35 Reaction Details PMH/Surg Hx/FS Hx/Imm Hx Previously Healthy: No - PMHx LIMITED DUE TO LEVEL 5 CAVEAT - NONVERBAL Cardiovascular History: Reports: Hx Hypercholesterolemia, Hx Hypertension Denies: Hx Pacemaker/ICD Respiratory History: Reports: Hx Asthma, Hx Pneumonia Denies: Hx Chronic Bronchitis, Hx Chronic Obstructive Pulmonary Disease (COPD ), Hx Cystic Fibrosis, Hx Lung Cancer, Hx Pleural Effusion, Hx Pulmonary Edema, Hx Pulmonary Embolism, Hx Seasonal Allergies, Hx Sleep Apnea, Other Respiratory Problems/Disorders Musculoskeletal History: Reports: Other Musculoskeletal History - Break in R foot, CONTRACTURES PER REPORT Denies: Hx Arthritis, Hx Back Problems, Hx Bursitis, Hx Congenital Bone Abnormalities, Hx Fibromyalgia, Hx Gout, Hx Orthopedic Injury, Hx Osteoporosis, Hx Scoliosis, Hx Tendonitis Sensory History: Reports: Hx Contacts or Glasses Denies: Hx Cataracts, Hx Eye Injury, Hx Eye Prosthesis, Hx Glaucoma, Hx Legally Blind, Hx Macular Degeneration, Hx Vision Problem, Hx Deafness, Hx Hearing Aid, Hx Hearing Problem, Other Sensory Impairments Opthamlomology History: Reports: Hx Contacts or Glasses Denies: Hx Cataracts, Hx Eye Injury, Hx Eye Prosthesis, Hx Glaucoma, Hx Legally Blind, Hx Macular Degeneration, Hx Vision Problem, Other Sensory Impairments Neurological History: Reports: Hx Dementia, Hx Nerve Disease, Hx Seizures, Other Neuro Impairments/Disorders - MS Denies: Hx Developmental Delay, Hx Headaches, Hx Migraine, Hx Spinal Cord Injury, Hx Transient Ischemic Attacks (TIA) Psychiatric History: Reports: Hx Depression, Hx Schizophrenia, Hx Bipolar Disorder Denies: Hx Anxiety, Hx Attention Deficit Hyperactivity Disorder, Hx Eating Disorder, Hx Panic Disorder, Hx Post Traumatic Stress Disorder, Hx Inpatient Treatment, Hx Community Mental Health Tx, Hx Suicide Attempt, Hx of Violent Episodes Against Others, Hx Substance Abuse, Other Psychiatric Issues/Disorders - Surgical History Surgery Procedure, Year, and Place: FX LEFT FOOT WITH ORIF, LAZY EYE SURGERY A CHILD Hx Anesthesia Reactions: No Infectious Disease History: Denies: Hx Tuberculosis - Family History Known Family History: Positive: Unknown - LEVEL 5 CAVEAT - UNABLE TO PROVIDE Hx - Dementia, MS, AMS/post-ictal., Other - Hx - Dementia, MS, AMS/post-ictal. - Social History Alcohol Use: None Substance Use Type: Reports: None Smoking Status (MU): Unknown if Ever Smoked Type: Cigarettes Have You Smoked in the Last Year: No Review of Systems - ROS Summary Review of Systems Summary: ROS LIMITED DUE TO LEVEL 5 CAVEAT - NONVERBAL All Other Systems Reviewed And Are Negative: No Physical Exam - Summary Physical Exam Summary: PE LIMITED DUE TO LEVEL 5 CAVEAT - NONVERBAL Appearance: Well appearing, no pain distress Skin: warm, dry, reflects adequate perfusion Head/face: normal Eyes: EOMI, SHAILESH ENT: mucous membranes moist. Harsh gurgling. Neck: supple, non-tender Respiratory: CTA, breath sounds present Cardiovascular: RRR, pulses symmetrical Abdomen: non-tender, soft Bowel Sounds: present Musculoskeletal: Pitting edema to her knees. Contraction of bilateral upper extremities. Neuro: normal, sensory motor intact Triage Information Reviewed: Yes Vital Signs Reviewed: Yes Diagnostics - Laboratory Lab Statement: Any lab studies that have been ordered have been reviewed, and results considered in the medical decision making process. - Radiology Chest XR Radiology Interpretation Completed By: Radiologist Summary of Radiographic Findings: CXR reveals, per radiologist, no focal airspace consolidation. Neck XR Radiology Interpretation Completed By: ED Physician Summary of Radiographic Findings: Neck XR reveals, per radiologist, Grossly unremarkable radiograph of the neck; however, most of the supraglottic larynx is obscured by the shoulders. ED physician has reviewed this radiology report. Disposition - Course Course Of Treatment: LIMITED DUE TO LEVEL 5 CAVEAT - NONVERBAL. Patient with chronic severe/end-stage multiple sclerosis. MOLST form indicates limited medical intervention. She had gurgling coming from her upper airway/posterior pharynx. She was suctioned which stopped the gurgling and improved her comfort. X-rays indicate no evidence of obstruction or pneumonitis. Recommendations for as needed suctioning while in the care home as well as upright positioning and thickened liquids. Family is not interested in having a PEG tube placed. She does have upcoming outpatient swallow eval. - Differential Dx - Cardiopulmonary Differential Diagnoses - Cardiopulmonary: Other - MS, dysfunctional swallowing, aspiration pneumonitis - Diagnoses Provider Diagnoses: Dysphagia, Multiple sclerosis Discharge - Sign-Out/Discharge Documenting (check all that apply): Patient Departure - Discharge home Patient Received Moderate/Deep Sedation with Procedure: No - Discharge Plan Condition: Improved Disposition: HOME Patient Education Materials: Chronic Dysphagia (DC) Referrals: Remi Wong MD [Primary Care Provider] - Additional Instructions: Outpatient swallowing evaluation as previously ordered. Thickened liquids until then. Keep upright, especially when eating. Suction as needed. Return with fever, difficulty breathing or other concerns. Follow-up with primary care physician on Monday. - Billing Disposition and Condition Condition: IMPROVED Disposition: Home - Attestation Statements Document Initiated by Medardo: Yes Documenting Scribe: Vicky Xiao Provider For Whom Medardo is Documenting (Include Credential): Dr. Emeterio Larkin MD Scribe Attestation: Vicky Harp scribed for Dr. Emeterio Larkin MD on 06/16/18 at 1608. Scribe Documentation Reviewed: Yes Provider Attestation: The documentation as recorded by the Vicky white accurately reflects the service I personally performed and the decisions made by me, Dr. Emeterio Larkin MD Status of Scribmoriah Document: Viewed
[2018-06-16 16:20] VITALS: BP 109/66
== END 2018-06-16 16:18 | disposition home or self-care (01) ==
LOC: ED 12:48
DX: R13.10 Dysphagia, unspecified (principal); G35 Multiple sclerosis; I10 Essential (primary) hypertension; Z88.8 Allergy status to other drugs, medicaments and biological substances
CPT/HCPCS: 70360; 71045; 99283